=== PATIENT | female | born 1955 | race Caucasian/White ===

== ENCOUNTER → 2016-07-17 | Outpatient (CLI) | payer BC ==
[2016-07-17 07:54] LABS: ALT 40 U/L (9-52); AST 35 U/L (14-36); Alkaline Phosphatase 89 U/L (38-126); Anion Gap 8 mmol/L; Basophils # (A) 0.1 k/uL (0-0.2); Basophils % (A) 1 %; Blood Urea Nitrogen 15 mg/dL (7-17); Calcium 9.8 mg/dL (8.4-10.2); Carbon Dioxide 29 mmol/L (22-30); Chloride 107 mmol/L (98-107); Eosinophils # (A) 0.4 k/uL (0-0.7); Eosinophils % (A) 6 %; Glucose 85 mg/dL (74-99); HCT 42.6 % (34.0-46.0); HDW 2.64; HGB 14.2 gm/dL (11.4-16.0); Luc # (Auto) 0.21; Luc % (Auto) 3; Lymphocytes # (A) 1.7 k/uL (1.0-4.8); Lymphocytes % (A) 26 %; MCH 28.6 pg (25.0-35.0); MCHC 33.3 g/dL (31.0-37.0); MCV 85.7 fL (80.0-100.0); Mean Platelet Volume 6.8; Monocytes # (A) 0.4 k/uL (0-1.0); Monocytes % (A) 6 %; Neutrophils # (A) 3.6 k/uL (1.3-7.7); Neutrophils % (A) 57 %; Non-African American GFR(MDRD) >60 (>60 ml/min/1.73 sqM); Potassium 4.4 mmol/L (3.5-5.1); RBC 4.97 m/uL (3.80-5.40); RDW 12.7 % (11.5-15.5); Sodium 144 mmol/L (137-145); Total Bilirubin 0.9 mg/dL (0.2-1.3); Total Protein 7.4 g/dL (6.3-8.2); WBC 6.4 k/uL (3.8-10.6); WBC (Perox) 6.95
--- NOTE | 2016-07-17 07:59 | US ---
EXAMINATION TYPE: US abdomen complete DATE OF EXAM: 07/17/2016 COMPARISON: Previous study dated 01/08/2016. CLINICAL HISTORY: B19.10 HEP B WITHOUT COMA. EXAM MEASUREMENTS: Liver Length: 12.5 cm Gallbladder Wall: 0.3 cm CBD: 0.3 cm Spleen: 10.9 cm Right Kidney: 9.8 x 4.6 x 4.4 cm Left Kidney: 10.2 x 5.9 x 4.8 cm Pancreas: portions of head and tail in entirety obscured by bowel gas Liver: wnl Gallbladder: wnl Evidence for sonographic Sotelo's sign: CBD: wnl Spleen: wnl Right Kidney: Inferior pole obscured by overlying bowel gas Left Kidney: No hydronephrosis or masses seen Upper IVC: wnl Abd Aorta: Partially obscured by overlying bowel gas, portions visualized wnl Limited views of the pancreas are unremarkable. The liver is normal in size without evidence of biliary dilatation. The gallbladder is normal without evidence of cholelithiasis. Gallbladder wall measures 3 mm. Distal common hepatic duct measures 3 mm. The spleen is normal in size. Both kidneys appear normal. Visualized portions of aorta and IVC are normal. IMPRESSION: NORMAL ABDOMINAL ULTRASOUND.
[2016-07-20 14:22] LABS: Hepatitis B Virus DNA DETECTED (Not detected)
== END | disposition home or self-care (01) ==
LOC: RADUSWWP 06:37
PROVIDERS: ATTEND Internal Medicine Gastroenterology
DX: B19.10 Unspecified viral hepatitis B without hepatic coma (principal)
CPT/HCPCS: 76700; 80053; 82105; 82677; 84702; 85025; 86336; 87340; 87517

== ENCOUNTER → 2016-10-02 | Outpatient (CLI) | payer BC ==
--- NOTE | 2016-10-05 09:56 | MM ---
Reason for exam: screening (asymptomatic). Last mammogram was performed 1 year and 1 month ago. History: Patient is postmenopausal and is nulliparous. Family history of breast cancer in maternal aunt at age 70. Reductions of both breasts, 1986. Took hormonal contraceptives for 5 years beginning at age 23. Took estrogen for 2 years beginning at age 49. Physical Findings: A clinical breast exam by your physician is recommended on an annual basis and results should be correlated with mammographic findings. MG 3D Screening Mammo W/Cad Bilateral CC and MLO view(s) were taken. Prior study comparison: September 06, 2015, bilateral MG screening mammo w CAD. May 04, 2014, bilateral MG screening mammo w CAD. Finding: There are typically benign calcifications in both breasts. No significant changes in finding since September 06, 2015 and May 04, 2014. ASSESSMENT: Benign, BI-RAD 2 RECOMMENDATION: Routine screening mammogram of both breasts in 1 year.
== END | disposition home or self-care (01) ==
LOC: RADMAMWWP 06:57
PROVIDERS: ATTEND Internal Medicine
DX: Z12.31 Encounter for screening mammogram for malignant neoplasm of breast (principal)
CPT/HCPCS: 77063; G0202

== ENCOUNTER → 2017-01-04 | Outpatient (CLI) | payer BC ==
[2017-01-04 08:23] LABS: Basophils # (A) 0.1 k/uL (0-0.2); Basophils % (A) 1 %; CHCM 32.2; Eosinophils # (A) 0.2 k/uL (0-0.7); Eosinophils % (A) 3 %; HCT 46.5 % (34.0-46.0); HDW 2.43; HGB 14.9 gm/dL (11.4-16.0); Luc # (Auto) 0.11; Luc % (Auto) 2; Lymphocytes # (A) 1.4 k/uL (1.0-4.8); Lymphocytes % (A) 23 %; MCHC 32.1 g/dL (31.0-37.0); MCV 87.4 fL (80.0-100.0); Monocytes # (A) 0.4 k/uL (0-1.0); Monocytes % (A) 7 %; Neutrophils # (A) 3.9 k/uL (1.3-7.7); Neutrophils % (A) 64 %; RBC 5.32 m/uL (3.80-5.40); RDW 14.1 % (11.5-15.5); WBC 6.1 k/uL (3.8-10.6); WBC (Perox) 6.13
[2017-01-04 08:39] LABS: ALT 34 U/L (9-52); AST 26 U/L (14-36); Alkaline Phosphatase 87 U/L (38-126); Anion Gap 9 mmol/L; Blood Urea Nitrogen 12 mg/dL (7-17); Calcium 10.1 mg/dL (8.4-10.2); Carbon Dioxide 30 mmol/L (22-30); Chloride 104 mmol/L (98-107); Cholesterol 172 mg/dL (<200); Creatine Kinase 49 U/L (30-135); Glucose 96 mg/dL (74-99); HDL Cholesterol 53 mg/dL (40-60); Non-African American GFR(MDRD) >60 (>60 ml/min/1.73 sqM); Potassium 4.4 mmol/L (3.5-5.1); Sodium 143 mmol/L (137-145); Total Bilirubin 0.7 mg/dL (0.2-1.3); Total Protein 7.5 g/dL (6.3-8.2)
--- NOTE | 2017-01-04 14:10 | US ---
EXAMINATION TYPE: US abdomen complete DATE OF EXAM: 01/04/2017 COMPARISON: July 17, 2016 CLINICAL HISTORY: B18.1 Chronic viral hepatitis B without delta-agent. Chronic viral Hep B EXAM MEASUREMENTS: Liver Length: 12.5 cm Gallbladder Wall: 0.2 cm CBD: 0.3 cm Spleen: 10.0 cm Right Kidney: 10.1 x 4.8 x 4.7 cm Left Kidney: 11.4 x 5.0 x 4.4 cm Pancreas: visualized portions wnl, head and tail obscured by overlying midline bowel gas Liver: somewhat heterogeneous, otherwise wnl Gallbladder: wnl Evidence for sonographic Sotelo's sign: no CBD: visualized portions wnl, limited by overlying bowel gas Spleen: wnl Right Kidney: wnl Left Kidney: wnl Upper IVC: wnl Abd Aorta: wnl The liver is somewhat heterogenous. The intrahepatic portion of the IVC and proximal abdominal aorta are within normal limits. There is no evidence of cholelithiasis. Common bile duct is unremarkable. The visualized portions of the pancreas are homogenous. The spleen is unremarkable. Kidneys are s ymmetric and free of hydronephrosis. No renal lesions are seen. IMPRESSION: 1. Hepatic heterogeneity may reflect chronic hepatocellular disease versus hepatic steatosis.
[2017-01-06 17:06] LABS: Hepatitis B Virus DNA DETECTED (Not detected); Hepatitis B Virus DNA, Quant 858 IU/mL (<10); Log HBV IU/mL 2.93 (<1.00)
== END | disposition home or self-care (01) ==
LOC: RADUSWWP 06:48
PROVIDERS: ATTEND Internal Medicine Gastroenterology
DX: B19.10 Unspecified viral hepatitis B without hepatic coma (principal)
CPT/HCPCS: 36415; 76700; 80053; 80061; 82105; 82550; 85025; 87517

== ENCOUNTER → 2017-08-03 | Outpatient (CLI) | payer BC ==
[2017-08-03 07:51] LABS: Basophils % (A) 1 %; Eosinophils # (A) 0.3 k/uL (0-0.7); Eosinophils % (A) 4 %; HCT 43.4 % (34.0-46.0); HGB 14.3 gm/dL (11.4-16.0); Lymphocytes # (A) 1.8 k/uL (1.0-4.8); Lymphocytes % (A) 29 %; MCH 27.9 pg (25.0-35.0); MCV 84.6 fL (80.0-100.0); Mean Platelet Volume 6.7; Monocytes # (A) 0.4 k/uL (0-1.0); Monocytes % (A) 6 %; Neutrophils # (A) 3.7 k/uL (1.3-7.7); Neutrophils % (A) 58 %; Platelet Count 281 k/uL (150-450); RBC 5.13 m/uL (3.80-5.40); RDW 12.9 % (11.5-15.5); WBC 6.3 k/uL (3.8-10.6)
[2017-08-03 07:59] LABS: ALT 32 U/L (9-52); AST 26 U/L (14-36); Albumin 4.2 g/dL (3.5-5.0); Alkaline Phosphatase 82 U/L (38-126); Anion Gap 10 mmol/L; Blood Urea Nitrogen 13 mg/dL (7-17); Calcium 9.5 mg/dL (8.4-10.2); Carbon Dioxide 26 mmol/L (22-30); Chloride 107 mmol/L (98-107); Glucose 96 mg/dL (74-99); Potassium 4.5 mmol/L (3.5-5.1); Sodium 143 mmol/L (137-145); Total Bilirubin 0.6 mg/dL (0.2-1.3); Total Protein 6.7 g/dL (6.3-8.2)
--- NOTE | 2017-08-03 08:26 | US ---
EXAMINATION TYPE: US abdomen complete DATE OF EXAM: 08/03/2017 COMPARISON: Complete abdominal ultrasound January 04, 2017 CLINICAL HISTORY: B18.1 Chronic viral hepatitis B without delta-agen. EXAM MEASUREMENTS: Liver Length: 12.7 cm Gallbladder Wall: 0.1 cm CBD: 0.2 cm Spleen: 9.9 cm Right Kidney: 10.1 x 4.2 x 3.7 cm Left Kidney: 10.2 x 4.5 x 4.6 cm Pancreas: Tail obscured by overlying bowel gas Liver: slightly heterogenous Gallbladder: wnl Evidence for sonographic Sotelo's sign: No CBD: wnl Spleen: wnl Right Kidney: wnl Left Kidney: wnl Upper IVC: wnl Abd Aorta: wnl The visualized liver remains slightly heterogeneous. No obvious intrahepatic mass or hepatic ductal dilatation is seen. The intrahepatic portion of the IVC and proximal abdominal aorta are within miguel l limits. There is no evidence of cholelithiasis. Common bile duct is unremarkable. The visualized portions of the pancreas are homogenous. The spleen is unremarkable. Kidneys are symmetric and tiana e of hydronephrosis. No renal lesions are seen. IMPRESSION: Overall stable findings slightly heterogeneous liver without suspicious mass or ductal di latation seen. No new ascites is noted.
[2017-08-04 14:47] LABS: Hepatitis B Virus DNA DETECTED (Not detected); Log HBV IU/mL 3.11 (<1.00)
== END | disposition home or self-care (01) ==
LOC: RADUSWWP 06:47
PROVIDERS: ATTEND Internal Medicine Gastroenterology
DX: B18.1 Chronic viral hepatitis B without delta-agent (principal)
CPT/HCPCS: 36415; 76700; 80053; 82105; 85025; 87517

== ENCOUNTER → 2017-09-27 | Outpatient (CLI) | payer BC ==
[2017-09-27 07:50] LABS: ALT 28 U/L (9-52); AST 28 U/L (14-36); Albumin 4.2 g/dL (3.5-5.0); Alkaline Phosphatase 81 U/L (38-126); Anion Gap 8 mmol/L; Blood Urea Nitrogen 14 mg/dL (7-17); Calcium 9.5 mg/dL (8.4-10.2); Carbon Dioxide 28 mmol/L (22-30); Chloride 107 mmol/L (98-107); Cholesterol 152 mg/dL (<200); Glucose 91 mg/dL (74-99); HDL Cholesterol 51 mg/dL (40-60); LDL Cholesterol,Calculated 83 mg/dL (0-99); Potassium 4.9 mmol/L (3.5-5.1); Sodium 143 mmol/L (137-145); Total Bilirubin 0.7 mg/dL (0.2-1.3); Total Protein 6.9 g/dL (6.3-8.2); Triglycerides 90 mg/dL (<150)
== END | disposition home or self-care (01) ==
LOC: LABWHC1 06:32
PROVIDERS: ATTEND Internal Medicine Interventional Cardiology
DX: E78.2 Mixed hyperlipidemia (principal)
CPT/HCPCS: 36415; 80053; 80061

== ENCOUNTER → 2017-10-19 | Outpatient (CLI) | payer BC ==
--- NOTE | 2017-10-20 08:08 | MM ---
Reason for exam: screening (asymptomatic). Last mammogram was performed 1 year and 1 month ago. History: Patient is postmenopausal and is nulliparous. Family history of breast cancer in maternal aunt at age 70. Reductions of both breasts, 1986. Took hormonal contraceptives for 5 years beginning at age 23. Took estrogen for 2 years beginning at age 49. Physical Findings: A clinical breast exam by your physician is recommended on an annual basis and results should be correlated with mammographic findings. MG 3D Screening Mammo W/Cad Bilateral CC and MLO view(s) were taken. Prior study comparison: October 02, 2016, bilateral MG 3d screening mammo w/cad. September 06, 2015, bilateral MG screening mammo w CAD. The breast tissue is almost entirely fat. No significant changes when compared with prior studies. ASSESSMENT: Benign, BI-RAD 2 RECOMMENDATION: Routine screening mammogram of both breasts in 1 year.
== END | disposition home or self-care (01) ==
LOC: RADMAMWWP 07:10
PROVIDERS: ATTEND Internal Medicine
DX: Z12.31 Encounter for screening mammogram for malignant neoplasm of breast (principal)
CPT/HCPCS: 77063; 77067

== ENCOUNTER → 2018-01-05 | Outpatient (CLI) | payer BC ==
[2018-01-05 07:39] LABS: Basophils # (A) 0.1 k/uL (0-0.2); Basophils % (A) 1 %; Eosinophils # (A) 0.3 k/uL (0-0.7); Eosinophils % (A) 4 %; HCT 44.4 % (34.0-46.0); HGB 14.7 gm/dL (11.4-16.0); Lymphocytes # (A) 1.8 k/uL (1.0-4.8); Lymphocytes % (A) 29 %; MCH 28.9 pg (25.0-35.0); MCHC 33.1 g/dL (31.0-37.0); MCV 87.1 fL (80.0-100.0); Mean Platelet Volume 6.6; Monocytes # (A) 0.4 k/uL (0-1.0); Monocytes % (A) 6 %; Neutrophils # (A) 3.7 k/uL (1.3-7.7); Neutrophils % (A) 59 %; Platelet Count 288 k/uL (150-450); RBC 5.09 m/uL (3.80-5.40); WBC 6.4 k/uL (3.8-10.6)
[2018-01-05 07:58] LABS: ALT 26 U/L (9-52); AST 24 U/L (14-36); Albumin 3.9 g/dL (3.5-5.0); Alkaline Phosphatase 81 U/L (38-126); Anion Gap 7 mmol/L; Blood Urea Nitrogen 11 mg/dL (7-17); Calcium 9.6 mg/dL (8.4-10.2); Carbon Dioxide 28 mmol/L (22-30); Chloride 107 mmol/L (98-107); Glucose 98 mg/dL (74-99); Potassium 4.6 mmol/L (3.5-5.1); Sodium 142 mmol/L (137-145); Total Bilirubin 0.6 mg/dL (0.2-1.3); Total Protein 6.8 g/dL (6.3-8.2)
--- NOTE | 2018-01-05 12:54 | US ---
EXAMINATION TYPE: US abdomen complete DATE OF EXAM: 01/05/2018 COMPARISON: 08/03/2017 CLINICAL HISTORY: 62-year-old female B18.1 Chronic viral hepatitis B without delta-agent. Rule out HC C TECHNIQUE: Multiple sonographic images of the abdomen are obtained. FINDINGS: EXAM MEASUREMENTS: Liver Length: 12.2 cm Gallbladder Wall: 0.2 cm CBD: 0.2 cm Spleen: 9.0 cm Right Kidney: 10.7 x 5.5 x 4.7 cm Left Kidney: 10.6 x 4.6 x 4.8 cm Pancreas: tail obscured by overlying bowel gas Liver: mildly heterogeneous . No focal lesions seen are identified. The liver rescanned in both sup ine and LLD position. Gallbladder: wnl Evidence for sonographic Sotelo's sign: no CBD: wnl Spleen: wnl Right Kidney: No hydronephrosis. Left Kidney: No hydronephrosis. Upper IVC: wnl Abd Aorta: wnl IMPRESSION: 1. Mildly heterogeneous appearance to the liver in keeping with patient's history of chronic hepatiti s. 2. No sonographic evidence for hepatoma.
[2018-01-07 14:19] LABS: Hepatitis B Virus DNA DETECTED (Not detected); Hepatitis B Virus DNA, Quant 707 IU/mL (<10); Log HBV IU/mL 2.85 (<1.00)
== END ==
LOC: RADUSWWP 06:33
PROVIDERS: ATTEND Internal Medicine Gastroenterology
DX: B18.1 Chronic viral hepatitis B without delta-agent (principal)
CPT/HCPCS: 36415; 76700; 80053; 82105; 85025; 87517

== ENCOUNTER → 2018-04-12 | Outpatient (CLI) | payer BC | END | disposition home or self-care (01) | LOC: LABWHC1 06:52 | PROVIDERS: ATTEND Internal Medicine Interventional Cardiology | DX: E78.2 Mixed hyperlipidemia (principal) | CPT/HCPCS: 36415; 80061; 84450; 84460 ==

== ENCOUNTER → 2018-07-06 | Outpatient (CLI) | payer BC ==
[2018-07-06 11:13] LABS: Albumin 4.4 g/dL (3.80-4.90); Albumin/Globulin Ratio 2.32 (1.60-3.17); Bilirubin, Conjugated 0.2 mg/dL (0.20-0.40); Bilirubin,Unconjugated 0.3 mg/dL; Globulin 1.9 g/dL (1.6-3.3); Total Bilirubin 0.5 mg/dL (0.2-1.2); Total Protein 6.3 g/dL (6.2-8.2)
[2018-07-07 13:06] LABS: Hepatitis B Virus DNA DETECTED (Not detected); Hepatitis B Virus DNA, Quant 706 IU/mL (<10); Log HBV IU/mL 2.85 (<1.00)
== END | disposition home or self-care (01) ==
LOC: LABWHC1 06:41
PROVIDERS: ATTEND Internal Medicine Gastroenterology
DX: B18.1 Chronic viral hepatitis B without delta-agent (principal)
CPT/HCPCS: 36415; 80076; 82105; 87517

== ENCOUNTER → 2018-07-06 | Outpatient (CLI) | payer BC ==
--- NOTE | 2018-07-06 07:34 | US ---
EXAMINATION TYPE: US abdomen complete DATE OF EXAM: 07/06/2018 COMPARISON: US 01/05/2018 CLINICAL HISTORY: B18.1 Hepatitis B. EXAM MEASUREMENTS: Liver Length: 13.1 cm Gallbladder Wall: 0.2 cm CBD: 0.3 cm Spleen: 10.1 cm Right Kidney: 10.6 x 4.8 x 4.8 cm Left Kidney: 9.8 x 5.2 x 4.5 cm Pancreas: Obscured by bowel gas, visualized portions wnl Liver: Heterogeneous Gallbladder: wnl Evidence for sonographic Sotelo's sign: No CBD: wnl Spleen: wnl Right Kidney: No hydronephrosis or masses seen Left Kidney: No hydronephrosis or masses seen Upper IVC: wnl Abd Aorta: wnl The liver is heterogeneous The intrahepatic portion of the IVC and proximal abdominal aorta are with in normal limits. There is no evidence of cholelithiasis. Common bile duct is unremarkable. The vi sualized portions of the pancreas are homogenous. The spleen is unremarkable. Kidneys are symmetric and free of hydronephrosis. No renal lesions are seen. IMPRESSION: Coarse liver echotexture could be due to hepatocellular disease, hepatic steatosis.
--- NOTE | 2018-07-06 08:33 | BD ---
EXAMINATION TYPE: Axial Bone Density DATE OF EXAM: 07/06/2018 COMPARISON: 2016 CLINICAL HISTORY: post menopausal Height: 5' 2 1/2 Weight: 165 FRAX RISK QUESTIONS: History of Fracture in Adulthood: y Secondary Osteoporosis: 5. Chronic liver disease: y RISK FACTORS HISTORY OF: Postmenopausal woman: y MEDICATIONS: Additional Medications: blood thinner , cholesterol Additional History: EXAM MEASUREMENTS: Bone mineral densitometry was performed using the [employer] System. Bone mineral density as measured about the Lumbar spine is: ----- L1-L4(G/cm2): 1.185 T Score Values are as follows: ----- L2: -0.6 ----- L3:-1.0 ----- L4: 0.9 ----- L1-L4: 0.0 Bone mineral density has: Decreased -4.3% since study of: 09/06/2015 Bone mineral density about the R hip (g/cm2): 0.768 Bone mineral density about the L hip (g/cm2): 0.766 T Score values are as follows: -----R Neck: -1.9 -----L Neck: -2.0 -----R Total: -0.8 -----L Total: -1.1 Bone mineral density has: Decreased -3.8% since study of: 09/06/2015 IMPRESSION: Osteopenia (T Score between -2.5 and -1). There is slightly increased risk of fracture and the patient may be considered for treatment. Re-Screen 2-5 years. NOTE: T-SCORE=SD OF THE YOUNG ADULT MEAN.
== END ==
LOC: RADUSWWP 06:44
PROVIDERS: ATTEND Internal Medicine
DX: M85.80 Other specified disorders of bone density and structure, unspecified site (principal); B18.1 Chronic viral hepatitis B without delta-agent
CPT/HCPCS: 76700; 77080

== ENCOUNTER → 2018-10-27 | Outpatient (CLI) | payer BC ==
[2018-10-27 11:36] LABS: African American GFR (CKD) 92.2 (60.0-200.0); Albumin 4.4 g/dL (3.80-4.90); Albumin/Globulin Ratio 2.32 (1.60-3.17); Anion Gap 4.9 mmol/L (4.00-12.00); BUN/Creat Ratio 17.5 Ratio (12.00-20.00); Calcium 9.3 mg/dL (8.7-10.3); Carbon Dioxide 29.1 mmol/L (21.6-31.8); Chol/HDL Ratio 2.75; Globulin 1.9 g/dL (1.6-3.3); LDL Cholesterol,Calculated 65.4 mg/dL (0.0-131.0); Potassium 4.2 mmol/L (3.5-5.5); Total Bilirubin 0.6 mg/dL (0.3-1.2); Total Protein 6.3 g/dL (6.2-8.2); VLDL Calculation 23.6 mg/dL (5.00-40.00)
== END | disposition home or self-care (01) ==
LOC: LABWHC1 06:39
PROVIDERS: ATTEND Internal Medicine Interventional Cardiology
DX: E78.2 Mixed hyperlipidemia (principal)
CPT/HCPCS: 36415; 80053; 80061

== ENCOUNTER → 2018-10-27 | Outpatient (CLI) | payer BC ==
--- NOTE | 2018-10-27 13:24 | MM ---
Reason for exam: screening (asymptomatic). Last mammogram was performed 1 year ago. History: Patient is postmenopausal and is nulliparous. Family history of breast cancer in maternal aunt at age 70. Reductions of both breasts, 1987. Took hormonal contraceptives for 5 years beginning at age 23. Took estrogen for 2 years beginning at age 49. Physical Findings: A clinical breast exam by your physician is recommended on an annual basis and results should be correlated with mammographic findings. MG 3D Screening Mammo W/Cad Bilateral CC and MLO view(s) were taken. Prior study comparison: October 19, 2017, bilateral MG 3d screening mammo w/cad. October 02, 2016, bilateral MG 3d screening mammo w/cad. There are scattered fibroglandular densities. There are benign appearing round calcifications bilaterally. There is no discrete abnormality. ASSESSMENT: Benign, BI-RAD 2 RECOMMENDATION: Routine screening mammogram of both breasts in 1 year.
== END | disposition home or self-care (01) ==
LOC: RADMAMWWP 06:42
PROVIDERS: ATTEND Internal Medicine
DX: Z12.31 Encounter for screening mammogram for malignant neoplasm of breast (principal)
CPT/HCPCS: 77063; 77067

== ENCOUNTER → 2019-01-04 | Outpatient (CLI) | payer BC ==
--- NOTE | 2019-01-04 07:37 | US ---
EXAMINATION TYPE: US abdomen complete DATE OF EXAM: 01/04/2019 COMPARISON: US 07/06/2018 CLINICAL HISTORY: B18.1 CHRONIC HEPATITIS B. Chronic Hep B EXAM MEASUREMENTS: Liver Length: 12.6 cm Gallbladder Wall: 0.3 cm CBD: 0.3 cm Spleen: 10.9 cm Right Kidney: 10.2 x 4.5 x 4.9 cm Left Kidney: 10.3 x 5.3 x 5.2 cm Pancreas: wnl, tail obscured by overlying bowel gas Liver: Slightly heterogeneous, similar appearance when compared to previous. No focal mass is seen a lthough coarsened hepatic echotexture does limit evaluation for hepatic masses. Gallbladder: wnl Evidence for sonographic Sotelo's sign: No CBD: wnl Spleen: wnl Right Kidney: wnl Left Kidney: wnl Upper IVC: wnl Abd Aorta: wnl The liver is heterogenous. The intrahepatic portion of the IVC and proximal abdominal aorta are with in normal limits. There is no evidence of cholelithiasis. Common bile duct is unremarkable. The vi sualized portions of the pancreas are homogenous. The spleen is unremarkable. Kidneys are symmetric and free of hydronephrosis. No renal lesions are seen. IMPRESSION: Similar coarsened appearance of the hepatic echotexture as seen on 07/06/2018 in keeping w ith this patient's known history of hepatocellular disease. No new focal lesion is seen.
[2019-01-04 07:49] LABS: Albumin 4.2 g/dL (3.5-5.0); Bilirubin, Delta 0.1 mg/dL (0.0-0.2); Bilirubin,Unconjugated 0.6 mg/dL (0.0-1.1); Total Bilirubin 0.7 mg/dL (0.2-1.3); Total Protein 7.2 g/dL (6.3-8.2)
[2019-01-04 07:52] LABS: Basophils # (A) 0.1 k/uL (0-0.2); Basophils % (A) 1 %; Eosinophils # (A) 0.2 k/uL (0-0.7); Eosinophils % (A) 3 %; HCT 43.2 % (34.0-46.0); HGB 14.6 gm/dL (11.4-16.0); Lymphocytes # (A) 1.6 k/uL (1.0-4.8); Lymphocytes % (A) 24 %; MCH 29.4 pg (25.0-35.0); MCHC 33.8 g/dL (31.0-37.0); Mean Platelet Volume 5.5; Monocytes # (A) 0.4 k/uL (0-1.0); Monocytes % (A) 5 %; Neutrophils # (A) 4.3 k/uL (1.3-7.7); Neutrophils % (A) 65 %; Platelet Count 284 k/uL (150-450); RBC 4.97 m/uL (3.80-5.40); RDW 12.5 % (11.5-15.5); WBC 6.7 k/uL (3.8-10.6)
== END | disposition home or self-care (01) ==
LOC: RADUSWWP 06:45
PROVIDERS: ATTEND Internal Medicine Gastroenterology
DX: K76.89 Other specified diseases of liver (principal); B18.1 Chronic viral hepatitis B without delta-agent
CPT/HCPCS: 76700; 80076; 82105; 85025; 87517

== ENCOUNTER → 2019-10-25 | Outpatient (CLI) | payer BC ==
--- NOTE | 2019-10-25 08:24 | US ---
EXAMINATION TYPE: US abdomen complete DATE OF EXAM: 10/25/2019 COMPARISON: 01/04/2019 CLINICAL HISTORY: 64-year-old female B19.10 Unspecified viral hepatitis B w/o hepatic. Routine ultras ound TECHNIQUE: Multiple sonographic images of the abdomen are obtained. FINDINGS: EXAM MEASUREMENTS: Liver Length: 13.3 cm Gallbladder Wall: 0.2 cm CBD: 0.5 cm Spleen: 9.5 cm Right Kidney: 10.7 x 4.5 x 4.6 cm Left Kidney: 9.2 x 4.9 x 5.2 cm Pancreas: Visualized neck and body shows no gross abnormality. Suboptimal visualization of the pancre atic head and tail due to shadowing from bowel gas. Liver: No focal lesions visualized. Some visualized portions seem to show a relatively smooth echo texture. Gallbladder: wnl Evidence for sonographic Sotelo's sign: neg CBD: wnl Spleen: wnl Kidneys: No hydronephrosis on either side. Upper IVC: wnl Abd Aorta: wnl IMPRESSION: No focal liver lesion seen. Liver normal size at 13.3 cm. No gallstones or biliary ductal dilatation.
[2019-10-25 08:25] LABS: Basophils # (A) 0.1 k/uL (0-0.2); Basophils % (A) 1 %; Eosinophils # (A) 0.2 k/uL (0-0.7); Eosinophils % (A) 3 %; HCT 44.6 % (34.0-46.0); HGB 14.1 gm/dL (11.4-16.0); Lymphocytes # (A) 1.7 k/uL (1.0-4.8); Lymphocytes % (A) 26 %; MCH 27.7 pg (25.0-35.0); MCHC 31.7 g/dL (31.0-37.0); MCV 87.2 fL (80.0-100.0); Mean Platelet Volume 6.9; Monocytes # (A) 0.4 k/uL (0-1.0); Monocytes % (A) 6 %; Neutrophils # (A) 4.1 k/uL (1.3-7.7); Neutrophils % (A) 61 %; Platelet Count 286 k/uL (150-450); RBC 5.11 m/uL (3.80-5.40); RDW 12.9 % (11.5-15.5); WBC 6.6 k/uL (3.8-10.6)
[2019-10-25 08:39] LABS: ALT 20 U/L (4-34); AST 28 U/L (14-36); African American GFR (CKD) >90 (>60 ml/min/1.73 sqM); Albumin 4.3 g/dL (3.5-5.0); Alkaline Phosphatase 88 U/L (38-126); Anion Gap 7 mmol/L; Blood Urea Nitrogen 11 mg/dL (7-17); Calcium 9.6 mg/dL (8.4-10.2); Carbon Dioxide 31 mmol/L (22-30); Chloride 104 mmol/L (98-107); Cholesterol 157 mg/dL (<200); Glucose 100 mg/dL (74-99); HDL Cholesterol 43 mg/dL (40-60); LDL Cholesterol,Calculated 82 mg/dL (0-99); Non-African American GFR(CKD) >90 (>60 ml/min/1.73 sqM); Potassium 4.4 mmol/L (3.5-5.1); Sodium 142 mmol/L (137-145); Total Bilirubin 0.8 mg/dL (0.2-1.3); Total Protein 7.2 g/dL (6.3-8.2); Triglycerides 161 mg/dL (<150)
== END | disposition home or self-care (01) ==
LOC: RADUSWWP 07:01
PROVIDERS: ATTEND Internal Medicine Gastroenterology
DX: B19.10 Unspecified viral hepatitis B without hepatic coma (principal); E78.2 Mixed hyperlipidemia
CPT/HCPCS: 76700; 80053; 80061; 82105; 85025; 87517

== ENCOUNTER → 2020-01-08 | Outpatient (CLI) | payer BC ==
--- NOTE | 2020-01-09 09:42 | MM ---
Reason for exam: screening (asymptomatic). Last mammogram was performed 1 year and 2 months ago. History: Patient is postmenopausal and is nulliparous. Family history of breast cancer in maternal aunt at age 70. Reductions of both breasts, 1987. Took hormonal contraceptives for 5 years beginning at age 23. Took estrogen for 2 years beginning at age 49. Physical Findings: A clinical breast exam by your physician is recommended on an annual basis and results should be correlated with mammographic findings. MG 3D Screening Mammo W/Cad Bilateral CC and MLO view(s) were taken. Prior study comparison: October 27, 2018, bilateral MG 3d screening mammo w/cad. October 19, 2017, bilateral MG 3d screening mammo w/cad. There are scattered fibroglandular densities. There is no discrete abnormality. No significant changes when compared with prior studies. ASSESSMENT: Negative, BI-RAD 1 RECOMMENDATION: Routine screening mammogram of both breasts in 1 year.
== END | disposition home or self-care (01) ==
LOC: RADMAMWWP 10:44
PROVIDERS: ATTEND Internal Medicine
DX: Z12.31 Encounter for screening mammogram for malignant neoplasm of breast (principal)
CPT/HCPCS: 77063; 77067

== ENCOUNTER → 2020-06-19 | Outpatient (CLI) | payer BC ==
[2020-06-19 08:09] LABS: Basophils # (A) 0.1 k/uL (0-0.2); Basophils % (A) 1 %; Eosinophils # (A) 0.3 k/uL (0-0.7); Eosinophils % (A) 3 %; HGB 14.3 gm/dL (11.4-16.0); Lymphocytes # (A) 2.1 k/uL (1.0-4.8); Lymphocytes % (A) 27 %; MCH 28.1 pg (25.0-35.0); MCHC 32.4 g/dL (31.0-37.0); MCV 86.8 fL (80.0-100.0); Mean Platelet Volume 6.6; Monocytes # (A) 0.5 k/uL (0-1.0); Monocytes % (A) 6 %; Neutrophils # (A) 4.8 k/uL (1.3-7.7); Neutrophils % (A) 61 %; Platelet Count 288 k/uL (150-450); RBC 5.07 m/uL (3.80-5.40); RDW 13.1 % (11.5-15.5); WBC 7.9 k/uL (3.8-10.6)
--- NOTE | 2020-06-19 08:26 | US ---
EXAMINATION TYPE: US abdomen complete DATE OF EXAM: 06/19/2020 COMPARISON: US 10/25/19, 01/04/19, ++ CLINICAL HISTORY: B19.10 Unspecified viral hepatitis B without hepat. EXAM MEASUREMENTS: Liver Length: 14.4 cm Gallbladder Wall: 0.1 cm CBD: 0.4 cm Spleen: 10.0 cm Right Kidney: 10.7 x 5.1 x 4.5 cm Left Kidney: 11.4 x 5.2 x 5.1 cm Pancreas: echogenic, Tail obscured by overlying bowel gas Liver: Increased attenuation, course texture Gallbladder: No stones seen Evidence for sonographic Sotelo's sign: No CBD: wnl Spleen: wnl Right Kidney: No hydronephrosis or masses seen Left Kidney: No hydronephrosis or masses seen Upper IVC: wnl Abd Aorta: wnl The liver is heterogenous. The intrahepatic portion of the IVC and proximal abdominal aorta are withi n normal limits. There is no evidence of cholelithiasis. Common bile duct is unremarkable. The vis ualized portions of the pancreas are homogenous. The spleen is unremarkable. Kidneys are symmetric and free of hydronephrosis. No renal lesions are seen. IMPRESSION: 1. Hepatic steatosis.
[2020-06-20 00:29] LABS: Alpha Fetoprotein, Tumor Mkr 3.3 ng/mL (0.0-7.9)
[2020-06-21 14:17] LABS: Hepatitis B Virus DNA DETECTED (Not detected); Hepatitis B Virus DNA, Quant 513 IU/mL (<10); Log HBV IU/mL 2.71 (<1.00)
== END | disposition home or self-care (01) ==
LOC: RADUSWWP 07:10
PROVIDERS: ATTEND Internal Medicine Gastroenterology
DX: B19.10 Unspecified viral hepatitis B without hepatic coma (principal); K76.0 Fatty (change of) liver, not elsewhere classified
CPT/HCPCS: 76700; 82105; 85025; 87340; 87517

== ENCOUNTER → 2020-07-24 | Outpatient (CLI) | payer BC ==
[2020-07-24 14:24] LABS: African American GFR (CKD) 106.9 (60.0-200.0); Albumin 4.6 g/dL (3.80-4.90); Albumin/Globulin Ratio 1.92 (1.60-3.17); BUN/Creat Ratio 22.86 Ratio (12.00-20.00); Calcium 9.5 mg/dL (8.7-10.3); Globulin 2.4 g/dL (1.6-3.3); Non-African American GFR(CKD) 92.2 (60.0-200.0); Potassium 4.5 mmol/L (3.5-5.5); Total Bilirubin 0.5 mg/dL (0.3-1.2)
== END | disposition home or self-care (01) ==
LOC: LABWHC1 07:31
PROVIDERS: ATTEND Internal Medicine Gastroenterology
DX: B19.10 Unspecified viral hepatitis B without hepatic coma (principal)
CPT/HCPCS: 36415; 80053

== ENCOUNTER → 2020-11-18 | Outpatient (CLI) | payer BC ==
[2020-11-18 14:06] LABS: African American GFR (CKD) 124.5 (60.0-200.0); Albumin 4.4 g/dL (3.8-4.9); Albumin/Globulin Ratio 1.92 (1.60-3.17); Anion Gap 11.8 mmol/L (4.00-12.00); BUN/Creat Ratio 18.73 Ratio (12.00-20.00); Blood Urea Nitrogen 8.2 mg/dL (9.0-27.0); Calcium 9.8 mg/dL (8.7-10.3); Carbon Dioxide 25.3 mmol/L (21.6-31.8); Chol/HDL Ratio 3.22 Ratio; Globulin 2.3 g/dL (1.6-3.3); HDL Cholesterol 47.9 mg/dL (40.00-60.00); LDL Cholesterol,Calculated 80.1 mg/dL (0.0-131.0); Non-African American GFR(CKD) 107.4 (60.0-200.0); Potassium 4.7 mmol/L (3.5-5.5); Total Bilirubin 0.4 mg/dL (0.30-1.20); Total Protein 6.7 g/dL (6.2-8.2)
== END | disposition home or self-care (01) ==
LOC: LABWHC1 07:13
PROVIDERS: ATTEND Internal Medicine Interventional Cardiology
DX: E78.2 Mixed hyperlipidemia (principal)
CPT/HCPCS: 36415; 80053; 80061

== ENCOUNTER → 2020-12-23 | Outpatient (CLI) | payer BC ==
--- NOTE | 2020-12-23 07:50 | US ---
EXAMINATION TYPE: US abdomen complete DATE OF EXAM: 12/23/2020 COMPARISON: 06/2020 CLINICAL HISTORY: B19.10 Unspecified viral hepatitis B without hepat. EXAM MEASUREMENTS: Liver Length: 13.3 cm Gallbladder Wall: 0.2 cm CBD: 0.3 cm Spleen: 9.7 cm Right Kidney: 10.3x5.2x4.7 cm Left Kidney: 10.3x4.3x6.2 cm Pancreas: Limited by bowel gas. Visualized portions of the pancreas are Echogenic Liver: Increased attenuation, course texture Gallbladder: wnl Evidence for sonographic Sotelo's sign: No CBD: wnl Spleen: wnl Right Kidney: wnl Left Kidney: wnl Upper IVC: wnl Abd Aorta: wnl IMPRESSION: 1. Stable appearance of the liver correlate for hepatic steatosis versus hepatocellular disease, hepa titis. 2 correlate for pancreatic atrophy or fatty replacement
[2020-12-23 08:08] LABS: Basophils # (A) 0.1 k/uL (0-0.2); Basophils % (A) 1 %; Eosinophils # (A) 0.3 k/uL (0-0.7); Eosinophils % (A) 4 %; HCT 43.8 % (34.0-46.0); HGB 14.2 gm/dL (11.4-16.0); Lymphocytes # (A) 1.7 k/uL (1.0-4.8); Lymphocytes % (A) 24 %; MCH 28.2 pg (25.0-35.0); MCHC 32.4 g/dL (31.0-37.0); MCV 87.2 fL (80.0-100.0); Mean Platelet Volume 6.8; Monocytes # (A) 0.4 k/uL (0-1.0); Monocytes % (A) 6 %; Neutrophils # (A) 4.5 k/uL (1.3-7.7); Neutrophils % (A) 63 %; Platelet Count 296 k/uL (150-450); RBC 5.02 m/uL (3.80-5.40); RDW 12.8 % (11.5-15.5); WBC 7.1 k/uL (3.8-10.6)
[2020-12-23 08:21] LABS: Albumin 4.4 g/dL (3.5-5.0); Bilirubin, Delta 0.2 mg/dL (0.0-0.2); Bilirubin,Unconjugated 0.6 mg/dL (0.0-1.1); Total Bilirubin 0.8 mg/dL (0.2-1.3); Total Protein 7.3 g/dL (6.3-8.2)
== END | disposition home or self-care (01) ==
LOC: RADUSWWP 07:03
PROVIDERS: ATTEND Internal Medicine Gastroenterology
DX: K76.89 Other specified diseases of liver (principal)
CPT/HCPCS: 76700; 80076; 82105; 85025; 87517

== ENCOUNTER → 2021-01-08 | Outpatient (CLI) | payer BC ==
--- NOTE | 2021-01-08 13:59 | BD ---
EXAMINATION TYPE: Axial Bone Density DATE OF EXAM: 01/08/2021 COMPARISON: 07.06.2018 CLINICAL HISTORY: 65 YR OLD FEMALE....ICD-10 CODE: N95.8 MENOPAUSAL Height: 62.2 Weight: 169 FRAX RISK QUESTIONS: History of Fracture in Adulthood: YES 5. Chronic liver disease: FATTY LIVER, HEP B RISK FACTORS HISTORY OF: HX OF BOTH ANKLES BROKEN, AN ADULT Diet low in dairy products/other sources of calcium: YES Postmenopausal woman: YES, AT ABOUT 52, TOTAL HYST TO FOLLOW Take estrogen and/or progesterone medications: YES, IN THE PAST FOR ABOUT 2-3 YRS Hyperparathyroidism: NO Adrenal Insufficiency: NO MEDICATIONS: Additional Medications: STATIN FOR CHOLESTEROL, VIT D AND CALCIUM Additional History: CHOLESTEROL, HRT IN THE PAST EXAM MEASUREMENTS: Bone mineral densitometry was performed using the [employer] System. Bone mineral density as measured about the Lumbar spine is: ----- L1-L4(G/cm2): 1.173 T Score Values are as follows: ----- L1: -1.3 ----- L2: -0.5 ----- L3: 0.7 ----- L4: 0.5 ----- L1-L4: -0.1 Bone mineral density has: Decreased -0.2% since study of: 07.06.2018 Bone mineral density about the R hip (g/cm2): 0.929 Bone mineral density about the L hip (g/cm2): 0.885 T Score values are as follows: -----R Neck: -2.0 -----L Neck: -2.1 -----R Total: -0.6 -----L Total: -1.0 Bone mineral density has: Increased 2.5% since study of: 07.06.2018 FRAX%s: THERE IS A 31.8% CHANCE FOR A MAJOR OSTEOPOROTIC FX DONALD 3.0% FOR HIP......PROBABILITY FO R FX IN 10 YRS TIME IMPRESSION: Osteopenia (T Score between -2.5 and -1). There is slightly increased risk of fracture and the patient may be considered for treatment. Re-Screen 2-5 years. NOTE: T-SCORE=SD OF THE YOUNG ADULT MEAN.
--- NOTE | 2021-01-13 12:13 | MM ---
Reason for exam: screening (asymptomatic). Last mammogram was performed 1 year ago. History: Patient is postmenopausal and is nulliparous. Family history of breast cancer in maternal aunt at age 70. Reductions of both breasts, 1987. Took hormonal contraceptives for 5 years beginning at age 23. Took estrogen for 2 years beginning at age 49. Physical Findings: A clinical breast exam by your physician is recommended on an annual basis and results should be correlated with mammographic findings. MG 3D Screening Mammo W/Cad Bilateral CC and MLO view(s) were taken. Prior study comparison: January 08, 2020, bilateral MG 3d screening mammo w/cad. October 27, 2018, bilateral MG 3d screening mammo w/cad. There are scattered fibroglandular densities. No significant changes when compared with prior studies. ASSESSMENT: Negative, BI-RAD 1 RECOMMENDATION: Routine screening mammogram of both breasts in 1 year.
== END | disposition home or self-care (01) ==
LOC: RADMAMWWP 06:56
PROVIDERS: ATTEND Internal Medicine
DX: Z12.31 Encounter for screening mammogram for malignant neoplasm of breast (principal); Z85.89 Personal history of malignant neoplasm of other organs and systems; Z78.0 Asymptomatic menopausal state
CPT/HCPCS: 77063; 77067; 77080

== ENCOUNTER 2021-05-26 17:23 | Observation (INO) | payer BC ==
[2021-05-26] MEDS ORDERED: SODIUM CHLORIDE 0.9% 500 ML 500 ML IV STA (17:33)
[2021-05-26 18:14] LABS: Basophils # (A) 0.1 k/uL (0-0.2); Basophils % (A) 1 %; Eosinophils # (A) 0.4 k/uL (0-0.7); Eosinophils % (A) 3 %; HCT 43.1 % (34.0-46.0); HGB 14.1 gm/dL (11.4-16.0); Lymphocytes # (A) 2.3 k/uL (1.0-4.8); Lymphocytes % (A) 20 %; MCH 28.3 pg (25.0-35.0); MCHC 32.8 g/dL (31.0-37.0); MCV 86.4 fL (80.0-100.0); Mean Platelet Volume 7.2; Monocytes # (A) 0.5 k/uL (0-1.0); Monocytes % (A) 5 %; Neutrophils # (A) 7.9 k/uL (1.3-7.7); Neutrophils % (A) 69 %; Platelet Count 305 k/uL (150-450); RBC 4.99 m/uL (3.80-5.40); RDW 12.7 % (11.5-15.5); WBC 11.3 k/uL (3.8-10.6)
--- NOTE | 2021-05-26 18:22 | CT ---
EXAMINATION TYPE: CT brain wo con DATE OF EXAM: 05/26/2021 COMPARISON: 09/15/2012 HISTORY: Visual disturbance. CT DLP: 1099.4 mGycm Automated exposure control for dose reduction was used. Ventricles and sulci appear normal. There is no mass effect or midline shift. There is no sign of int racranial hemorrhage. Calvarium is intact. There is normal aeration of the mastoid sinuses. IMPRESSION: Negative unenhanced head CT scan. No change.
--- NOTE | 2021-05-26 18:23 | XR ---
EXAMINATION TYPE: XR chest 2V DATE OF EXAM: 05/26/2021 COMPARISON: 09/14/2012 HISTORY: Altered mental status TECHNIQUE: FINDINGS: Heart and mediastinum are normal. Lungs are clear. Diaphragm is normal. Bony thorax appears normal. IMPRESSION: Normal chest. No change.
[2021-05-26 18:24] LABS: Partial Thromboplastin Time 22.2 sec (22.0-30.0); Prothrombin Time 10.7 sec (9.0-12.0)
[2021-05-26 18:35] LABS: ALT 23 U/L (4-34); AST 56 U/L (14-36); African American GFR (CKD) >90 (>60 ml/min/1.73 sqM); Albumin 4.5 g/dL (3.5-5.0); Alkaline Phosphatase 113 U/L (38-126); Anion Gap 10 mmol/L; Blood Urea Nitrogen 18 mg/dL (7-17); Calcium 9.6 mg/dL (8.4-10.2); Carbon Dioxide 23 mmol/L (22-30); Chloride 106 mmol/L (98-107); Glucose 127 mg/dL (74-99); Non-African American GFR(CKD) 78 (>60 ml/min/1.73 sqM); Potassium 3.7 mmol/L (3.5-5.1); Sodium 139 mmol/L (137-145); Total Bilirubin 0.7 mg/dL (0.2-1.3); Total Protein 7.9 g/dL (6.3-8.2)
[2021-05-26] MEDS ORDERED: ASPIRIN 325 MG TAB PO STA (19:44)
--- NOTE | 2021-05-26 19:50 | ED ---
General Adult HPI - General Chief complaint: Neuro Symptoms/Deficit Stated complaint: TIA Time Seen by Provider: 05/26/21 17:30 Source: patient, RN notes reviewed, old records reviewed Mode of arrival: wheelchair Limitations: no limitations - History of Present Illness Initial comments: 66-year-old female presenting for evaluation of vision changes which began approximately 1700 and resolved within 5 or 10 minutes. Patient states that she's had several episodes similar to this over the past several months. This is exactly how her previous stroke had initially presented and then progressed to slurred speech. She states that she cannot have any slurring of her speech or facial droop or limb weakness.. - Related Data Home Medications Medication Instructions Recorded Confirmed Atorvastatin [Lipitor] 20 mg PO DAILY 12/22/13 05/26/21 Clopidogrel Bisulfate [Clopidogrel] 75 mg PO DAILY 12/22/13 05/26/21 Calcium Carbonate/Vitamin D3 1 tab PO DAILY 05/26/21 05/26/21 [Calcium 600 mg-Vit D3 10 mcg (400 Unit)] Multivitamins, Thera [Multivitamin 1 tab PO DAILY 05/26/21 05/26/21 (formulary)] Allergies Allergy/AdvReac Type Severity Reaction Status Date / Time cephalexin monohydrate Allergy Rash/Hives Verified 05/26/21 18:39 [From Keflex] morphine Allergy Itching Verified 05/26/21 18:39 Sulfa (Sulfonamide Allergy Abdominal Verified 05/26/21 18:39 Antibiotics) Pain STEROIDS AdvReac Uncoded 05/26/21 18:41 Review of Systems ROS Statement: Those systems with pertinent positive or pertinent negative responses have been documented in the HPI. ROS Other: All systems not noted in ROS Statement are negative. Past Medical History Past Medical History: CVA/TIA Additional Past Medical History / Comment(s): TIA IN AUGUST 2012 History of Any Multi-Drug Resistant Organisms: None Reported Past Surgical History: Breast Surgery, Hysterectomy, Orthopedic Surgery, Tubal Ligation Additional Past Surgical History / Comment(s): ORIF RIGHT ANKLE. BREAST REDUCTION. Past Anesthesia/Blood Transfusion Reactions: No Reported Reaction Past Psychological History: No Psychological Hx Reported Smoking Status: Never smoker Past Alcohol Use History: Occasional Past Drug Use History: None Reported - Past Family History Mother Family Medical History: Congestive Heart Failure (CHF) General Exam Limitations: no limitations General appearance: alert, in no apparent distress Head exam: Present: atraumatic, normocephalic Eye exam: Present: normal appearance, PERRL ENT exam: Present: normal exam Neck exam: Present: normal inspection Respiratory exam: Present: normal lung sounds bilaterally. Absent: respiratory distress, wheezes Cardiovascular Exam: Present: regular rate, normal rhythm GI/Abdominal exam: Present: soft. Absent: distended, tenderness Extremities exam: Present: normal inspection, normal capillary refill. Absent: calf tenderness Neurological exam: Present: alert, oriented X3, CN II-XII intact, other (No limb ataxia, NIH is 0). Absent: motor sensory deficit Psychiatric exam: Present: normal affect, normal mood Skin exam: Present: warm, dry, intact. Absent: cyanosis, diaphoretic Course Vital Signs 05/26/21 05/26/21 05/26/21 17:25 19:02 19:35 Temperature 97.4 F L Pulse Rate 108 H 80 105 H Respiratory 16 18 18 Rate Blood Pressure 164/93 173/88 171/95 O2 Sat by Pulse 99 98 99 Oximetry - Reevaluation(s) Reevaluation #1: 05/26/21 19:49 Patient's NIH is 0 and her symptoms have completely resolved. Not a TPA candidate. EKG Findings - EKG Comments: EKG Findings:: EKG sinus tachycardia rate of 101, IL interval 161, QRS duration 92, QTC [address] segment elevation. Medical Decision Making - Medical Decision Making 66-year-old female with present with vision changes consistent with previous TIA, CVA. Her symptoms had resolved prior to arrival. She has no limb weakness. No facial droop. Her speech is normal. She has an NIH of 0. Head CT is negative for intracranial hemorrhage or mass effect. Her laboratory testing is unremarkable. She is in sinus rhythm. She's given an aspirin in the emergency department. Given her history of previous TIA and CVA she will be placed in observation for further evaluation treatment. Neurology placed on c onsult. Case discussed with Dr. Quiros - Lab Data Result diagrams: 05/26/21 17:45 05/26/21 17:45 Lab Results 05/26/21 05/26/21 05/26/21 Range/Units 17:45 17:45 17:45 WBC 11.3 H (3.8-10.6) k/uL RBC 4.99 (3.80-5.40) m/uL Hgb 14.1 (11.4-16.0) gm/dL Hct 43.1 (34.0-46.0) % MCV 86.4 (80.0-100.0) fL MCH 28.3 (25.0-35.0) pg MCHC 32.8 (31.0-37.0) g/dL RDW 12.7 (11.5-15.5) % Plt Count 305 (150-450) k/uL MPV 7.2 Neutrophils % 69 % Lymphocytes % 20 % Monocytes % 5 % Eosinophils % 3 % Basophils % 1 % Neutrophils # 7.9 H (1.3-7.7) k/uL Lymphocytes # 2.3 (1.0-4.8) k/uL Monocytes # 0.5 (0-1.0) k/uL Eosinophils # 0.4 (0-0.7) k/uL Basophils # 0.1 (0-0.2) k/uL PT 10.7 (9.0-12.0) sec INR 1.0 (<1.2) APTT 22.2 (22.0-30.0) sec Sodium 139 (137-145) mmol/L Potassium 3.7 (3.5-5.1) mmol/L Chloride 106 (98-107) mmol/L Carbon Dioxide 23 (22-30) mmol/L Anion Gap 10 mmol/L BUN 18 H (7-17) mg/dL Creatinine 0.80 (0.52-1.04) mg/dL Est GFR (CKD-EPI)AfAm >90 (>60 ml/min/1.73 sqM) Est GFR (CKD-EPI)NonAf 78 (>60 ml/min/1.73 sqM) Glucose 127 H (74-99) mg/dL Calcium 9.6 (8.4-10.2) mg/dL Total Bilirubin 0.7 (0.2-1.3) mg/dL AST 56 H (14-36) U/L ALT 23 (4-34) U/L Alkaline Phosphatase 113 (38-126) U/L Troponin I (0.000-0.034) ng/mL Total Protein 7.9 (6.3-8.2) g/dL Albumin 4.5 (3.5-5.0) g/dL 05/26/21 Range/Units 17:45 WBC (3.8-10.6) k/uL RBC (3.80-5.40) m/uL Hgb (11.4-16.0) gm/dL Hct (34.0-46.0) % MCV (80.0-100.0) fL MCH (25.0-35.0) pg MCHC (31.0-37.0) g/dL RDW (11.5-15.5) % Plt Count (150-450) k/uL MPV Neutrophils % % Lymphocytes % % Monocytes % % Eosinophils % % Basophils % % Neutrophils # (1.3-7.7) k/uL Lymphocytes # (1.0-4.8) k/uL Monocytes # (0-1.0) k/uL Eosinophils # (0-0.7) k/uL Basophils # (0-0.2) k/uL PT (9.0-12.0) sec INR (<1.2) APTT (22.0-30.0) sec Sodium (137-145) mmol/L Potassium (3.5-5.1) mmol/L Chloride (98-107) mmol/L Carbon Dioxide (22-30) mmol/L Anion Gap mmol/L BUN (7-17) mg/dL Creatinine (0.52-1.04) mg/dL Est GFR (CKD-EPI)AfAm (>60 ml/min/1.73 sqM) Est GFR (CKD-EPI)NonAf (>60 ml/min/1.73 sqM) Glucose (74-99) mg/dL Calcium (8.4-10.2) mg/dL Total Bilirubin (0.2-1.3) mg/dL AST (14-36) U/L ALT (4-34) U/L Alkaline Phosphatase (38-126) U/L Troponin I <0.012 (0.000-0.034) ng/mL Total Protein (6.3-8.2) g/dL Albumin (3.5-5.0) g/dL Disposition Clinical Impression: Transient cerebral ischemia Disposition: ADMITTED IP TO THIS HOSP Condition: Stable Is patient prescribed a controlled substance at d/c from ED?: No Referrals: Lilly Hdez MD [Primary Care Provider] - 1-2 days Time of Disposition: 19:40 Decision to Admit Reason: Admit from EC Decision Date: 05/26/21
[2021-05-26] MEDS: SODIUM CHLORIDE 0.9% 1,000 ML IV SCH (20:14)
--- NOTE | 2021-05-26 21:14 | US ---
EXAMINATION TYPE: US carotid duplex BILAT DATE OF EXAM: 05/26/2021 COMPARISON: NONE CLINICAL HISTORY: Stenosis. TIA symptoms EXAM MEASUREMENTS: RIGHT: Peak Systolic Velocity (PSV) cm/sec ----- Right CCA: 87.1 ----- Right ICA: 76.9 ----- Right ECA: 170.0 ICA/CCA ratio: 0.9 RIGHT: End Diastole cm/sec ----- Right CCA: 24.0 ----- Right ICA: 19.8 ----- Right ECA: 22.7 LEFT: Peak Systolic Velocity (PSV) cm/sec ----- Left CCA: 83.2 ----- Left ICA: 89.6 ----- Left ECA: 125.0 ICA/CCA ratio: 1.1 LEFT: End Diastole cm/sec ----- Left CCA: 18.8 ----- Left ICA: 29.2 ----- Left ECA: 10.4 VERTEBRALS (direction of flow): Right Vertebral: Antegrade Left Vertebral: Antegrade Rhythm: Normal Mild plaque formation IMPRESSION: There is antegrade flow in the vertebral arteries. Conclusion measurement suggests less than 20% stenosis in both internal carotid arteries. Criteria for Assigning % of Stenosis / Diameter reduction (Estimation based on the indirect measurements of the internal carotid artery velocities (ICA PSV). 1. Normal (no stenosis)=ICA PSV < 125 cm/s: ratio < 2.0: ICA EDV<40 cm/s. 2. Less than 50% stenosis=ICA PSV < 125 cm/s: ratio < 2.0: ICA EDV<40 cm/s. 3. 50 to 69% stenosis=ICA PSV of 125 to 230 cm/s: ration 2.0 ? 4.0: ICA EDV 40-100 cm/s. 4. Greater than 70% stenosis to near occlusion= ICA PSV > 230 cm/s: ratio > 4.0: ICA EDV > 100 cm/s. 5. Near occlusion= ICA PSV velocities may be low or undetectable: variable ratio and ICA EDV. 6. Total occlusion=unable to detect flow.
[2021-05-27] MEDS ORDERED: ATORVASTATIN 80 MG TAB PO STA (01:36)
--- NOTE | 2021-05-27 01:37 | P.HPIM ---
History of Present Illness H&P Date: 05/26/21 Patient is a 66-year-old female with a PMH of hyperlipidemia and history of TIA who presents to the emergency room with complaints of visual impairments and headache. Patient reports that her symptoms started around 4:55 PM earlier today, with zig zagging lines across her vision, lasting for roughly 9 minutes, followed by a diffuse headache, which lasted for upwards of an hour. The patient reports that she has had similar symptoms multiple times in the past, and that in 2018 at her initial episode, she was evaluated by neurology and was suspected to have had a TIA. She reports no changes in her speech, no weakness, numbness, or tingling. She also denied experiencing cough, fever, chills, chest pain, shortness of breath, nausea, vomiting, abdominal pain, diarrhea. CT brain in the emergency room was unremarkable. Chest x-ray was also unremarkable. EKG revealed sinus tachycardia with PVCs at 101 bpm with T-wave inversion in lead III and T-wave flattening in lead aVF. Laboratory evaluation revealed WBC 11.3, troponin less than 0.012. Review of systems: Pertinent positives and negatives as discussed in HPI, a complete review of systems was performed and all other systems are negative. Physical examination: General: non toxic, no distress, appears at stated age, obese Derm: no unusual rashes/lesions no unusual ecchymoses, warm, dry Head: atraumatic, normocephalic, symmetric Eyes: EOMI, no lid lag, anicteric sclera, pupils equal round reactive to light ENT: Nose and ears atraumatic, no thrush, no pharyngeal erythema Neck: No thyromegaly, no cervical lymphadenopathy, trachea midline, supple Mouth: no lip lesion, mucus membranes moist Cardiovascular: S1S2 reg, no murmur, positive posterior tibial pulse bilateral, no edema, capillary refill less than 2 seconds Lungs: CTA bilateral, no rhonchi, no rales , no accessory muscle use Abdominal: soft, nontender to palpation, no guarding, no appreciable organomegaly, normal bowel sounds Ext: no gross muscle atrophy, muscle strength 5 out of 5 in all 4 extremities grossly, no contractures, Neuro: CN II-XI grossly intact, light touch intact all 4 extremities, finger to nose within normal limits, no pronator drift Psych: Alert, oriented, appropriate affect Assessment/plan Visual impairment and headache, suspected complex migraine with aura versus TIA -Neurology consult -Continue with aspirin -Neuro checks Chronic conditions: Hyperlipidemia -Continue with home meds DVT prophylaxis -Heparin subq The patient is admitted with an anticipated less than 2 midnight stay for evaluation of visual impairements CODE STATUS: Full Code Discussed with: Patient Anticipated discharge date: in am Anticipated discharge place: Home Past Medical History Past Medical History: CVA/TIA Additional Past Medical History / Comment(s): TIA IN AUGUST 2012 History of Any Multi-Drug Resistant Organisms: None Reported Past Surgical History: Breast Surgery, Hysterectomy, Orthopedic Surgery, Tubal Ligation Additional Past Surgical History / Comment(s): ORIF RIGHT ANKLE. BREAST REDUCTION. Past Anesthesia/Blood Transfusion Reactions: No Reported Reaction Past Psychological History: No Psychological Hx Reported Smoking Status: Never smoker Past Alcohol Use History: Occasional Past Drug Use History: None Reported - Past Family History Mother Family Medical History: Congestive Heart Failure (CHF) Medications and Allergies Home Medications Medication Instructions Recorded Confirmed Type Atorvastatin [Lipitor] 20 mg PO DAILY 12/22/13 05/26/21 History Clopidogrel Bisulfate [Clopidogrel] 75 mg PO DAILY 12/22/13 05/26/21 History Calcium Carbonate/Vitamin D3 1 tab PO DAILY 05/26/21 05/26/21 History [Calcium 600 mg-Vit D3 10 mcg (400 Unit)] Multivitamins, Thera [Multivitamin 1 tab PO DAILY 05/26/21 05/26/21 History (formulary)] Allergies Allergy/AdvReac Type Severity Reaction Status Date / Time cephalexin monohydrate Allergy Rash/Hives Verified 05/26/21 18:39 [From Keflex] morphine Allergy Itching Verified 05/26/21 18:39 Sulfa (Sulfonamide Allergy Abdominal Verified 05/26/21 18:39 Antibiotics) Pain STEROIDS AdvReac Uncoded 05/26/21 18:41 Physical Exam Vitals: Vital Signs Temp Pulse Resp BP Pulse Ox 05/26/21 19:35 105 H 18 171/95 99 05/26/21 19:02 80 18 173/88 98 05/26/21 17:25 97.4 F L 108 H 16 164/93 99 Intake and Output 05/26/21 05/26/21 05/26/21 06:59 14:59 22:59 Other: Weight 77.111 kg Results CBC & Chem 7: 05/26/21 17:45 05/26/21 17:45 Labs: Abnormal Lab Results - Last 24 Hours (Table) 05/26/21 05/26/21 Range/Units 17:45 17:45 WBC 11.3 H (3.8-10.6) k/uL Neutrophils # 7.9 H (1.3-7.7) k/uL BUN 18 H (7-17) mg/dL Glucose 127 H (74-99) mg/dL AST 56 H (14-36) U/L
[2021-05-27 09:18] LABS: Chol/HDL Ratio 2.97 Ratio; LDL Cholesterol,Calculated 69.9 mg/dL (0.0-131.0); VLDL Calculation 16.96 mg/dL (5.00-40.00)
[2021-05-27] MEDS: ATORVASTATIN 20 MG TAB PO SCH (09:43)
[2021-05-27] MEDS: CLOPIDOGREL 75 MG TAB PO SCH (09:43)
[2021-05-27] MEDS: ASPIRIN 325 MG TAB PO SCH (09:43)
--- NOTE | 2021-05-27 09:57 | P.CNNES ---
History of Present Illness Consult date: 05/27/21 Requesting physician: Kelechi Castanon Reason for Consult: TIA History of Present Illness: This is a 66-year-old woman with history of TIA who presented emergency department on 05/26/2021 for evaluation of visual change. She stated that it began on 05/26/2021 arounf 5 PM and resolved within 8-9 minutes. She describes episodes as a jacket lines over both eyes and then after the episodes she would have a mild anterior temporal headache. She stated the headache are about 2- 3/10 and they feel her pressure. She denies any photophobia, phonophobia, nausea or vomiting. Any difficulty getting her words out, difficult swallowing, any weakness or numbness. She is aware during his episode. She denies of any urinary or bowel incontinence. She denies any history of migraines in the past. She had a previous episode similar to this last 2 months ago. She initially had similar presentation like this also on 2012 but the episode she also had afterwards difficulty getting her words out. In 2013 it was thought she had TIA. Patient is on home medication of Plavix 75 mg and Lipitor 20 mg daily. She stated that she was started on Plavix by her store clerk cashier. She denies of any tobacco use or alcohol use or any illicit drug use. Of note in 2013 patient the because of the episode that she saw Dr. Palomino as that her neurologist and she had an EEG and well as she had MRI and the MRI was not suggestive of a stroke but had some nonspecific white matter lesion. She said that she had an EEG in 2013 and what was notified that was normal. Some of the workup in the hospital consisted of: Initial vital signs was blood pressure 154/93, heart rate of 18, cirrhosis 16, temperature of 97.4 Fahrenheit oral and pulse ox of 99% room air. Initial white blood cells 11.3 and it slightly neutrophilic otherwise rest of CBC with differential is unremarkable Chemistry panel is AST is 56 which is minimally elevated BUN is 18 otherwise rest of the temperature panel is unremarkable. CT of the head is reported as negative on has had computed tomography scan. No change. I personally reviewed the CT of the head and there is no acute or subacute ischemia there is no encephalomalacia that was appreciable and there is no intraparenchymal hemorrhage Carotid duplex is reported as measurements suggest less than 20% stenosis in both internal carotid arteries. NIH stroke scale is 0. Review of Systems Review of system: The 12 point system was reviewed and apparent positive and negative per HPI. Past Medical History Past Medical History: CVA/TIA Additional Past Medical History / Comment(s): TIA IN AUGUST 2012 History of Any Multi-Drug Resistant Organisms: None Reported Past Surgical History: Breast Surgery, Hysterectomy, Orthopedic Surgery, Tubal Ligation Additional Past Surgical History / Comment(s): ORIF RIGHT ANKLE. BREAST REDUCTION. Past Anesthesia/Blood Transfusion Reactions: No Reported Reaction Past Psychological History: No Psychological Hx Reported Smoking Status: Never smoker Past Alcohol Use History: Occasional Past Drug Use History: None Reported - Past Family History Mother Family Medical History: Congestive Heart Failure (CHF) Medications and Allergies Home Medications Medication Instructions Recorded Confirmed Type Atorvastatin [Lipitor] 20 mg PO DAILY 12/22/13 05/26/21 History Clopidogrel Bisulfate [Clopidogrel] 75 mg PO DAILY 12/22/13 05/26/21 History Calcium Carbonate/Vitamin D3 1 tab PO DAILY 05/26/21 05/26/21 History [Calcium 600 mg-Vit D3 10 mcg (400 Unit)] Multivitamins, Thera [Multivitamin 1 tab PO DAILY 05/26/21 05/26/21 History (formulary)] Allergies Allergy/AdvReac Type Severity Reaction Status Date / Time cephalexin monohydrate Allergy Rash/Hives Verified 05/26/21 18:39 [From Keflex] morphine Allergy Itching Verified 05/26/21 18:39 Sulfa (Sulfonamide Allergy Abdominal Verified 05/26/21 18:39 Antibiotics) Pain STEROIDS AdvReac Uncoded 05/26/21 18:41 Physical Examination - Vital Signs Vital Signs: Vital Signs Temp Pulse Pulse Resp BP BP Pulse Ox 05/27/21 07:04 97.7 F 58 L 14 146/78 98 05/27/21 02:13 97.8 F 59 L 15 153/82 99 05/26/21 20:42 98.3 F 95 15 179/93 97 05/26/21 19:35 105 H 18 171/95 99 05/26/21 19:02 80 18 173/88 98 05/26/21 17:25 97.4 F L 108 H 16 164/93 99 Intake and Output 04/11/22 04/12/22 04/12/22 22:59 06:59 14:59 Other: Voiding Method Toilet # Voids 2 2 Weight 77.111 kg GENERAL: The patient is lying in bed and is not in acute distress. CHEST: The heart rate is regular rate rhythm. No murmurs to auscultation. No carotid bruit bilaterally. LUNG: Clear to auscultation bilaterally no wheezing noted throughout. Not labored breathing. ABDOMEN/GI: Bowel sounds present in all 4 quadrants. No tenderness to palpation throughout. NEUROLOGICAL: Higher mental function: The patient is awake, alert, oriented to self, place and time. Patient is following commands. No aphasia and no neglect. Cranial nerves: The pupils are round, equal and reactive to light and accommodation. Visual chinchilla are full to confrontation throughout. Extraocular movement is intact no nystagmus is noted. Facial sensation is normal to touch throughout. The facial strength is normal throughout. Hearing is normal bilaterally to hand rub. Tongue is midline and moved [id number] without any difficulty. No dysarthria is noted. Shoulder shrug is normal bilaterally. Motor: The strength is 5 over 5 throughout. Normal tone and bulk. Cerebellum: Normal finger to nose heel to martinez bilaterally. Sensation: Sensation is normal to touch throughout. Reflexes (right/left): 2+ throughout. Plantars are downgoing bilaterally. Results - Laboratory Findings CBC and BMP: 05/26/21 17:45 05/26/21 17:45 Abnormal Lab Findings: Abnormal Labs 05/26/21 04 17:45 17:45 WBC 11.3 H Neutrophils # 7.9 H BUN 18 H Glucose 127 H AST 56 H Assessment and Plan Assessment: Episode of jagged-line over both eyes followed by headache over the anterior temporal likely due to complicated migraine. I feel stroke/TIA seems atypical for her presentation. History of reported TIA (has similar episode of jagged-line, then headache then aphasia: I feel more complicated migraine) History of Hepatitis B (from ) Plan: The patient was started on aspirin 325 daily by ED team and was continued on her home dose of Plavix 75 mg daily. Patient to be on dual antiplatelet for 30 days then she'll speak with her store clerk cashier on discontinuing Plavix and to resume aspirin. She was given Lipitor 80 mg once by ED team and was continued on his home dose of Lipitor 20 mg daily. I ordered MRI of the brain with and without. Ordered TSH level, ESR and CRP level. Patient was to hold off on any migraine medication at this time since they're not frequent. We'll re-address this after workup was done. 2-D echo, lipid panel are ordered and pending PT OT and TECHNICAL DATA ANALYST are consulted Continue neuro checks On cardiac monitoring We'll defer the rest of the medical management to the primary team Upon discharge recommend the patient to follow-up with a neurologist within 1-2 weeks. The plan discussed with the patient as well as her nurse. Thank you for the consultation Prasad Cardoso M.D. Neuro-hospitalist Time with Patient: Greater than 30
--- NOTE | 2021-05-27 12:59 | ECHOF ---
Referral Reason:Thrombus MEASUREMENTS -------- HEIGHT: 157.5 cm WEIGHT: 77.1 kg BP: 153/82 RVIDd: 3.1 cm (< 3.3) IVSd: 1.0 cm (0.6 - 1.1) LVIDd: 4.0 cm (3.9 - 5.3) LVPWd: 0.9 cm (0.6 - 1.1) IVSs: 1.5 cm LVIDs: 2.4 cm LVPWs: 1.4 cm LA Diam: 3.1 cm (2.7 - 3.8) LAESV Index (A-L): 17.55 ml/m Ao Diam: 2.6 cm (2.0 - 3.7) AV Cusp: 1.9 cm (1.5 - 2.6) MV EXCURSION: 12.755 mm (> 18.000) MV EF SLOPE: 61 mm/s (70 - 150) EPSS: 0.3 cm MV E Chaitanya: 0.83 m/s MV DecT: 282 ms MV A Chaitanya: 0.93 m/s MV E/A Ratio: 0.89 AR PHT: 539 ms RAP: 5.00 mmHg RVSP: 22.70 mmHg FINDINGS -------- Sinus rhythm. This was a technically good study. The left ventricular size is normal. Left ventricular wall thickness is normal. Overall left vent ricular systolic function is normal with, an EF between 60 - 65 %. The right ventricle is normal in size. Normal LA size by volume 22+/-6 ml/m2. The right atrium is normal in size. Interatrial and interventricular septum intact. There is mild aortic regurgitation. There is trace to mild mitral regurgitation. Mild tricuspid regurgitation present. Right ventricular systolic pressure is normal at < 35 mmHg. Trace/mild (physiologic) pulmonic regurgitation. The aortic root size is normal. Normal inferior vena cava with normal inspiratory collapse consistent with estimated right atrial pre ssure of 5 mmHg. There is no pericardial effusion. CONCLUSIONS -------- 1. The left ventricular size is normal. 2. Left ventricular wall thickness is normal. 3. Overall left ventricular systolic function is normal with, an EF between 60 - 65 %. 4. There is mild aortic regurgitation. 5. There is trace to mild mitral regurgitation. 6. Mild tricuspid regurgitation present. 7. Trace/mild (physiologic) pulmonic regurgitation. 8. There is no pericardial effusion. PHTHALIC ACID PURIFIER: Elle Ortiz RDCS
[2021-05-27] MEDS: SODIUM CHLORIDE 0.9% 1,000 ML IV SCH ×2 (16:16→16:17)
--- NOTE | 2021-05-27 16:29 | P.PN ---
Subjective Progress Note Date: 05/27/21 Hospital course: Patient is a 66-year-old female with a PMH of hyperlipidemia and history of TIA who presents to the emergency room with complaints of visual impairments and headache. Patient reports that her symptoms started around 4:55 PM earlier today, with zig zagging lines across her vision, lasting for roughly 9 minutes, followed by a diffuse headache, which lasted for upwards of an hour. The patient reports that she has had similar symptoms multiple times in the past, and that in 2018 at her initial episode, she was evaluated by neurology and was suspected to have had a TIA. She reports no changes in her speech, no weakness, numbness, or tingling. She also denied experiencing cough, fever, chills, chest pain, shortness of breath, nausea, vomiting, abdominal pain, diarrhea. CT brain in the emergency room was unremarkable. Chest x-ray was also unremarkable. EKG revealed sinus tachycardia with PVCs at 101 bpm with T-wave inversion in lead III and T-wave flattening in lead aVF. Laboratory evaluation revealed WBC 11.3, troponin less than 0.012. Physical exam: Patient seen and fully evaluated at the bedside this morning. Patient reports she can still feel a slight pressure-like sensation in the left temporal region of her head otherwise reports full resolution of previously reported visual impairment flashing lights like lightening that she was previously experiencing. Patient denies having any other complaints including difficulties with or changes in her speech, memory problems, dysphasia, chest pain, palpitations, shortness of breath, or experiencing any numbness/tingling/weakness in her extremities. Vital signs reviewed and stable. General: Nontoxic, no distress and appears stated age. Derm: Skin warm and dry, normal coloration for ethnicity. Head: Atraumatic, normocephalic and symmetric. Eyes: EOMs intact, no lid lag, and anicteric sclera Mouth: no lip lesions, mucus membranes moist Cardiovascular: regular rate and rhythm with normal S1S2, no murmur, positive posterior tibial pulses bilaterally, and cap refill < 2 seconds. Lungs: Respirations even, regular, and unlabored on room air. Lungs CTA bilaterally, no rhonchi, no rales, no wheezing, and no accessory muscle usage. Abdominal: soft, nontender to palpation, no guarding, no appreciable organomegaly Ext: ROM intact. No gross muscle atrophy, no edema, no contractures Neuro: Speech clear, face symmetrical and CN II-XII grossly intact with no noted focal neuro deficits Psych: Alert and oriented to person, place, time, and situation. Appropriate and pleasant affect. Assessment and Plan of Care: Visual impairment and headache, suspected complex migraine with aura versus TIA -Neurology consult -Continue with aspirin -Neuro checks -Awaiting MRI to be completed this afternoon scheduled for 3 PM Chronic conditions: Hyperlipidemia -Continue with home meds CODE STATUS: Full Code DVT prophylaxis: Heparin Discussed with: Patient Anticipated discharge date: Likely later this evening status post completion of MRI Anticipated discharge place: Home A total of 34 minutes was spent on the care of this complex patient more than 50% of the time was spent in counseling and care coordination. Mayank Sharp NP rendered care for this patient independently, reviewed the findings and plan as documented in the note above. I did not physically speak with or examine the patient on this date. Objective - Vital Signs Vital signs: Vital Signs Temp 98.1 F 05/27/21 13:43 Pulse 62 05/27/21 13:43 Resp 16 05/27/21 13:43 BP 139/79 05/27/21 13:43 Pulse Ox 98 05/27/21 13:43 Intake & Output 05/26/21 05/27/21 05/27/21 18:59 06:59 18:59 Intake Total 358 Balance 358 Weight 77.111 kg 77.111 kg Intake: Oral 358 Other: Voiding Method Toilet Toilet # Voids 2 1 - Labs CBC & Chem 7: 05/26/21 17:45 05/26/21 17:45 Labs: Abnormal Lab Results - Last 24 Hours (Table) 05/26/21 05/26/21 Range/Units 17:45 17:45 WBC 11.3 H (3.8-10.6) k/uL Neutrophils # 7.9 H (1.3-7.7) k/uL BUN 18 H (7-17) mg/dL Glucose 127 H (74-99) mg/dL AST 56 H (14-36) U/L
[2021-05-28] MEDS: SODIUM CHLORIDE 0.9% 1,000 ML IV SCH (04:29)
[2021-05-28 07:23] VITALS: RESP 15
[2021-05-28] MEDS: CLOPIDOGREL 75 MG TAB PO SCH (08:55)
[2021-05-28] MEDS: ATORVASTATIN 20 MG TAB PO SCH (08:55)
[2021-05-28] MEDS: ASPIRIN 325 MG TAB PO SCH (08:55)
[2021-05-28 13:18] VITALS: BP 126/86; PULSE 60; TEMP 98.1
--- NOTE | 2021-05-28 13:34 | MR ---
EXAMINATION TYPE: MR brain wo/w con DATE OF EXAM: 05/28/2021 COMPARISON: CT brain 2 days ago. HISTORY: Headache, visual disturbance TECHNIQUE: Multiplanar, multisequence images of the brain and brainstem is performed without and with IV contras t, utilizing 8 mL intravenous Gadavist . FINDINGS: Diffusion weighted images demonstrate no evidence of a recent infarct or other diffusion ab normality. The ventricular system and cisternal spaces are normal in size and appearance. The brain volume is age appropriate. Scattered foci of T2 hyperintensity are seen. The white matter bilaterally . Approximately 15 scattered lesions are seen. Lesions are nonspecific in appearance and distribution . No suspicious fluid signal bilateral mastoid air cells. Midline structures demonstrate normal morphology. The craniocervical junction appears within normal limits. Post contrast images demonstrate no abnormal enhancement. The dural venous sinuses appear pa tent. The visualized sinuses are clear and the globes are intact. IMPRESSION: Mild nonspecific white matter changes could be on basis of altered vascular mechanics rel ated to product of chronic migraine headaches. Other etiologies are not excluded. No abnormal enhance ment or enhancing masses are identified.
--- NOTE | 2021-05-28 14:20 | P.DS ---
Providers Date of admission: 05/26/21 19:44 Expected date of discharge: 05/28/21 Attending physician: Gisela Travis DO Consults: 05/26/21 19:45 Consult Physician Routine Consulting Provider: Prasad Cardoso Consult Reason/Comments: TIA Do you want consulting provider notified?: Yes Primary care physician: Lilly Hdez Hospital Course: Discharge Diagnosis: Visual impairment and headache, suspected complex migraine Hyperlipidemia Hospital Course: Patient is a 66-year-old female with a PMH of hyperlipidemia and history of TIA who presents to the emergency room with complaints of visual impairments and headache. Patient reports that her symptoms started around 4:55 PM earlier today, with zig zagging lines across her vision, lasting for roughly 9 minutes, followed by a diffuse headache, which lasted for upwards of an hour. The patient reports that she has had similar symptoms multiple times in the past, and that in 2018 at her initial episode, she was evaluated by neurology and was suspected to have had a TIA. She reports no changes in her speech, no weakness, numbness, or tingling. She also denied experiencing cough, fever, chills, chest pain, shortness of breath, nausea, vomiting, abdominal pain, diarrhea. CT brain in the emergency room was unremarkable. Chest x-ray was also unremarkable. EKG revealed sinus tachycardia with PVCs at 101 bpm with T-wave inversion in lead III and T-wave flattening in lead aVF. Laboratory evaluation revealed WBC 11.3, troponin less than 0.012. Echocardiogram was completed showing normal EF between 60 and 65% with no significant valvular abnormalities. Lipid profile was unremarkable. CRP 0.40. MRI revealing mild nonspecific white matter changes could be on basis of altered vascular mechanics related to product of chronic migraine headaches. Patient was started on aspirin 325 mg daily and neurology (Dr. Cardoso) recommending follow-up outpatient in their office in one week. Patient is medically stable for discharge at this time all symptoms have resolved prior to arrival to our facility. Patient is medically stable and to follow up with her PCP in 1-2 days and neurology in 1 week. Physical exam: Vital signs reviewed and stable. General: Nontoxic, no distress and appears stated age. Derm: Skin warm and dry, normal coloration for ethnicity. Head: Atraumatic, normocephalic and symmetric. Eyes: EOMs intact, no lid lag, and anicteric sclera Mouth: no lip lesions, mucus membranes moist Cardiovascular: regular rate and rhythm with normal S1S2, no murmur, positive posterior tibial pulses bilaterally, and cap refill < 2 seconds. Lungs: Respirations even, regular, and unlabored on room air. Lungs CTA bilaterally, no rhonchi, no rales, no wheezing, and no accessory muscle usage. Abdominal: soft, nontender to palpation, no guarding, no appreciable organomegaly Ext: ROM intact. No gross muscle atrophy, no edema, no contractures Neuro: Speech clear, face symmetrical and CN II-XII grossly intact with no noted focal neuro deficits Psych: Alert and oriented to person, place, time, and situation. Appropriate and pleasant affect. A total of 35 minutes of time were spent preparing this complex discharge summary. Mayank Sharp NP rendered care for this patient independently, reviewed the findings and plan as documented in the note above. I did not physically speak with or examine the patient on this date. Patient Condition at Discharge: Stable Plan - Discharge Summary New Discharge Prescriptions: New Aspirin 325 mg PO DAILY tab Continue Atorvastatin [Lipitor] 20 mg PO DAILY Clopidogrel Bisulfate [Clopidogrel] 75 mg PO DAILY Multivitamins, Thera [Multivitamin (formulary)] 1 tab PO DAILY Calcium Carbonate/Vitamin D3 [Calcium 600 mg-Vit D3 10 mcg (400 Unit)] 1 tab PO DAILY Discharge Medication List Atorvastatin [Lipitor] 20 mg PO DAILY 12/22/13 [History] Clopidogrel Bisulfate [Clopidogrel] 75 mg PO DAILY 12/22/13 [History] Calcium Carbonate/Vitamin D3 [Calcium 600 mg-Vit D3 10 mcg (400 Unit)] 1 tab PO DAILY 05/26/21 [History] Multivitamins, Thera [Multivitamin (formulary)] 1 tab PO DAILY 05/26/21 [History] Aspirin 325 mg PO DAILY tab 05/28/21 [Rx] Follow up Appointment(s)/Referral(s): Kasey Palomino MD [REFERRING] - 1 Week Lilly Hdez MD [Primary Care Provider] - 1-2 days Patient Instructions/Handouts: Migraine Headache (GEN), Ocular Migraine (GEN) Activity/Diet/Wound Care/Special Instructions: Activity: As tolerated. Take breaks as needed. Diet: Heart healthy and carb consistent diet. Avoid salts, or foods with hidden salts such as canned or boxed foods and frozen dinners. Extra salt makes your heart work harder and traps the fluid in your body for longer. Special Instructions: Take all of your medications as directed and remember to keep all of your doctor's appointments and follow-up as needed. He will be following up with Dr. Madden in his office for continued long-term monitoring and management. Also recommend starting aspirin 325 mg daily as directed by neurologist. Thank you for allowing us to participate in your care, it was truly a pleasure having you for our patient!!! Discharge Disposition: HOME SELF-CARE
--- NOTE | 2021-05-28 16:14 | P.PN ---
Subjective Progress Note Date: 05/28/21 The patient is seen at bedside and feels she is doing much better. Denies of any new neurological issues. Denies of any vision issues. Objective - Vital Signs Vital signs: Vital Signs Temp 98.1 F 05/28/21 13:17 Pulse 60 05/28/21 13:17 Resp 15 05/28/21 13:17 BP 126/86 05/28/21 13:17 Pulse Ox 97 05/28/21 13:17 Intake & Output 05/27/21 05/28/21 05/28/21 18:59 06:59 18:59 Intake Total 476 400 Balance 476 400 Intake: Oral 476 400 Other: Voiding Method Toilet Toilet # Voids 1 2 - Exam GENERAL: The patient is lying in bed and is not in acute distress. NEUROLOGICAL: Higher mental function: The patient is awake, alert, oriented to self, place and time. Patient is following commands. No aphasia and no neglect. Cranial nerves: The pupils are round, equal and reactive to light and accommodation. Visual chinchilla are full to confrontation throughout. Extraocular movement is intact no nystagmus is noted. Facial sensation is normal to touch throughout. The facial strength is normal throughout. Hearing is normal bilat erally to hand rub. Tongue is midline and moved [id number] without any difficulty. No dysarthria is noted. Shoulder shrug is normal bilaterally. Motor: The strength is 5 over 5 throughout. Normal tone and bulk. Cerebellum: Normal finger to nose heel to martinez bilaterally. Sensation: Sensation is normal to touch throughout. Reflexes (right/left): 2+ throughout. Plantars are downgoing bilaterally. WORK-UP: TSH: 2.60 CRP: 0.40 ESR: 3 Lipid panel: TG 84, Cholestrol 131, LDL 69, HDL 44. CT of the head is reported as negative on has had computed tomography scan. No change. I personally reviewed the CT of the head and there is no acute or subacute ischemia there is no encephalomalacia that was appreciable and there is no intraparenchymal hemorrhage Carotid duplex is reported as measurements suggest less than 20% stenosis in both internal carotid arteries. MRI Brain: Is reported as mild nonspecific white matter changes could be on basis of altered vascular mechanics related to product of chronic migraine headaches. Other account financial manager are not excluded. No abnormal enhancement or enhancing masses are identified. I reviewed the images and there is no acute or subacute ischemic stroke. I agree there is no enhancing lesion. 2D echo: Is reported as Left ventricular wall thickness is normal. EF 60-65%. Normal LA size by volume. - Labs CBC & Chem 7: 05/26/21 17:45 05/26/21 17:45 Assessment and Plan Assessment: Episode of jagged-line over both eyes followed by headache over the anterior temporal likely due to complicated migraine. I feel stroke/TIA is unlikely but cannot be excluded. History of reported TIA (has similar episode of jagged-line, then headache then aphasia: I feel more complicated migraine) History of Hepatitis B (from ) Plan: Continue Plavix 75 mg daily (home dose) and was started on ASA 325mg daily. 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 Continue home dose of Lipitor 20 mg daily. Patient was to hold off on any migraine medication at this time since they're not frequent. PT OT and MASTER FISHER are consulted Continue neuro checks On cardiac monitoring We'll defer the rest of the medical management to the primary team Upon discharge recommend the patient to follow-up with a neurologist within 1-2 weeks. There is no additional work-up needed at this time. The plan discussed with the patient as well as her nurse. Prasad Cardoso M.D. Neuro-hospitalist Time with Patient: Less than 30
== END 2021-05-28 14:46 | disposition home or self-care (01) ==
LOC: EC 17:23 → 6NMEDSUR 19:44
PROVIDERS: ADMIT Internal Medicine; ATTEND Internal Medicine
DX: R51.9 Headache, unspecified (principal); H53.8 Other visual disturbances; Z86.73 Personal history of transient ischemic attack (TIA), and cerebral infarction without residual deficits; R00.0 Tachycardia, unspecified; E78.5 Hyperlipidemia, unspecified; I49.3 Ventricular premature depolarization; I08.3 Combined rheumatic disorders of mitral, aortic and tricuspid valves; E66.9 Obesity, unspecified; Z68.31 Body mass index [BMI] 31.0-31.9, adult; Z71.9 Counseling, unspecified; Z86.19 Personal history of other infectious and parasitic diseases; Z79.899 Other long term (current) drug therapy; Z79.02 Long term (current) use of antithrombotics/antiplatelets; Z88.1 Allergy status to other antibiotic agents; Z88.5 Allergy status to narcotic agent; Z88.2 Allergy status to sulfonamides; Z88.8 Allergy status to other drugs, medicaments and biological substances; Z90.710 Acquired absence of both cervix and uterus; Z82.49 Family history of ischemic heart disease and other diseases of the circulatory system
CPT/HCPCS: 96361 ×3; 96360; 99285; 36415; 93005; 93306; 97161; 97165; 80061; 80053; 85652; 84443; 84484; 85025; 85610; 85730; 86140; 71046; 93880; 70450; 70553; G0378 ×3; A9585

== ENCOUNTER → 2021-06-26 | Outpatient (CLI) | payer BC ==
[2021-06-26 10:36] LABS: Basophils # (A) 0.07 X 10*3/uL (0.00-0.10); Eosinophils # (A) 0.33 X 10*3/uL (0.04-0.35); Eosinophils % (A) 4.6 %; HCT 43.9 % (37.2-46.3); HGB 13.5 g/dL (12.0-15.0); Immature Grans, Automated 0.3 %; Lymphocytes # (A) 2.05 X 10*3/uL (0.90-5.00); Lymphocytes % (A) 28.5 %; MCH 27.6 pg (27.0-32.0); MCHC 30.8 g/dL (32.0-37.0); MCV 89.8 fL (80.0-97.0); Mean Platelet Volume 9.9 fL (9.5-12.2); Monocytes # (A) 0.61 X 10*3/uL (0.20-1.00); Monocytes % (A) 8.5 %; NRBC Per 100 WBC 0 /100 WBCS (0.0-0.0); Neutrophils # (A) 4.12 X 10*3/uL (1.80-7.70); Neutrophils % (A) 57.1 %; Platelet Count 300 X 10*3/uL (140-440); RBC 4.89 X 10*6/uL (4.10-5.20); RDW 12.6 % (11.5-14.5)
[2021-06-26 10:45] LABS: African American GFR (CKD) 109.5 (60.0-200.0); Albumin 4.3 g/dL (3.8-4.9); Albumin/Globulin Ratio 1.59 (1.60-3.17); Anion Gap 10.4 mmol/L (10.00-18.00); BUN/Creat Ratio 18.52 Ratio (12.00-20.00); Blood Urea Nitrogen 11.8 mg/dL (9.0-27.0); Calcium 9.3 mg/dL (8.7-10.3); Carbon Dioxide 25.6 mmol/L (20.0-27.5); Globulin 2.7 g/dL (1.6-3.3); Non-African American GFR(CKD) 94.5 (60.0-200.0); Potassium 4.3 mmol/L (3.5-5.5); Total Bilirubin 0.6 mg/dL (0.30-1.20)
[2021-06-26 11:55] LABS: INR 0.99 (0.90-1.11); Prothrombin Time 10.9 sec (9.9-11.9)
--- NOTE | 2021-06-26 13:07 | US ---
EXAMINATION TYPE: US abdomen complete DATE OF EXAM: 06/26/2021 COMPARISON: NONE CLINICAL HISTORY: 66-year-old female B18.1 CHRONIC VIRAL HEPATITIS B WITHOUT DELTA-AGEN. TECHNIQUE: Multiple sonographic images of the abdomen are obtained. FINDINGS: EXAM MEASUREMENTS: Liver Length: 13.2 cm Gallbladder Wall: 0.1 cm CBD: 0.4 cm Spleen: 9.9 cm Right Kidney: 10.1 x 4.6 x 4.3 cm Left Kidney: 9.9 x 4.8 x 5.3 cm Pancreas: Limited visualization of the pancreatic tail and head due to bowel gas shadowing. Visualiz ed body within normal limits. Liver: Slightly heterogeneous echotexture may be a technical basis. No focal lesions seen. Gallbladder: wnl Evidence for sonographic Sotelo's sign: neg CBD: wnl Spleen: wnl Right Kidney: No hydronephrosis or masses seen Left Kidney: No hydronephrosis or masses seen Upper IVC: wnl Abd Aorta: No AAA visualized IMPRESSION: 1. Slight heterogeneous appearance to the liver suggests nonspecific hepatocellular disease. No focal liver lesion identified. 2. No gallstones or biliary ductal dilatation.
[2021-06-27 16:09] LABS: Hepatitis B Virus DNA DETECTED (Not detected); Hepatitis B Virus DNA, Quant 206 IU/mL (<10); Log HBV IU/mL 2.31 (<1.00)
== END | disposition home or self-care (01) ==
LOC: RADUSWWP 06:57
PROVIDERS: ATTEND Internal Medicine Gastroenterology
DX: B18.1 Chronic viral hepatitis B without delta-agent (principal); R73.9 Hyperglycemia, unspecified
CPT/HCPCS: 76700; 80053; 82105; 83036; 85025; 85610; 87517

== ENCOUNTER → 2021-12-16 | Outpatient (CLI) | payer BC ==
[2021-12-16 14:35] LABS: ALT 20 U/L (8-44); AST 21 U/L (13-35); African American GFR (CKD) 105.6 (60.0-200.0); Albumin 4.4 g/dL (3.8-4.9); Alkaline Phosphatase 86 U/L (41-126); BUN/Creat Ratio 15.22 Ratio (12.00-20.00); Bilirubin, Conjugated <0.20 mg/dL (0.20-0.40); Blood Urea Nitrogen 10.7 mg/dL (9.0-27.0); Calcium 9.5 mg/dL (8.7-10.3); Carbon Dioxide 27.5 mmol/L (20.0-27.5); Chloride 106 mmol/L (96-109); Chol/HDL Ratio 3.13 Ratio; Globulin 2.2 g/dL (1.6-3.3); Glucose 95 mg/dL (70-110); LDL Cholesterol,Calculated 77.5 mg/dL (0.0-131.0); Non-African American GFR(CKD) 91.1 (60.0-200.0); Potassium 5.1 mmol/L (3.5-5.5); Sodium 142 mmol/L (135-145); Total Protein 6.5 g/dL (6.2-8.2); VLDL Calculation 19.84 mg/dL (5.00-40.00)
[2021-12-16 14:43] LABS: Basophils # (A) 0.06 X 10*3/uL (0.00-0.10); Eosinophils # (A) 0.21 X 10*3/uL (0.04-0.35); Eosinophils % (A) 3.5 %; HCT 42.2 % (37.2-46.3); HGB 13.6 g/dL (12.0-15.0); Immature Grans, Automated 0.3 %; Lymphocytes # (A) 1.62 X 10*3/uL (0.90-5.00); Lymphocytes % (A) 27.1 %; MCH 28.6 pg (27.0-32.0); MCHC 32.2 g/dL (32.0-37.0); MCV 88.7 fL (80.0-97.0); Mean Platelet Volume 10.5 fL (9.5-12.2); Monocytes # (A) 0.47 X 10*3/uL (0.20-1.00); Monocytes % (A) 7.9 %; NRBC Per 100 WBC 0 /100 WBCS (0.0-0.0); Neutrophils % (A) 60.2 %; Platelet Count 280 X 10*3/uL (140-440); RBC 4.76 X 10*6/uL (4.10-5.20); RDW 13.2 % (11.5-14.5); WBC 5.98 X 10*3/uL (4.50-10.00)
[2021-12-16 15:51] LABS: INR 1.01 (0.90-1.11); Prothrombin Time 11.1 sec (9.9-11.9)
[2021-12-17 09:38] LABS: Hepatitis B Virus DNA DETECTED (Not detected); Hepatitis B Virus DNA, Quant 220 IU/mL (<10); Log HBV IU/mL 2.34 (<1.00)
== END | disposition home or self-care (01) ==
LOC: LABWHC1 06:59
PROVIDERS: ATTEND Internal Medicine Interventional Cardiology
DX: E78.2 Mixed hyperlipidemia (principal); B18.1 Chronic viral hepatitis B without delta-agent
CPT/HCPCS: 36415; 80053; 80061; 82105; 82248; 85025; 85610; 87517

== ENCOUNTER → 2021-12-16 | Outpatient (CLI) | payer BC ==
--- NOTE | 2021-12-16 12:05 | US ---
EXAMINATION TYPE: US abdomen complete DATE OF EXAM: 12/16/2021 COMPARISON: CT CLINICAL HISTORY: B18.1 CHRONIC VIRAL HEPATITIS B. TECHNIQUE: Multiple sonographic images of the abdomen are obtained. FINDINGS: EXAM MEASUREMENTS: Liver Length: 11.6 cm Gallbladder Wall: cm CBD: Not measured Spleen: 10.9 cm Right Kidney: 10.8 x 4.5 x 4.8 cm Left Kidney: 10.6 cm EMPLOYMENT ATTORNEY NOTES: Pancreas: Tail obscured by overlying bowel gas Liver: wnl Gallbladder: Sonolucent. No obvious wall thickening is evident. Evidence for sonographic Sotelo's sign: no CBD: limited visualization, appears wnl Spleen: wnl Right Kidney: wnl Left Kidney: wnl Upper IVC: wnl Abd Aorta: Bifurcation obscured by overlying bowel gas IMPRESSION: 1. No acute ultrasound abnormality.
== END | disposition home or self-care (01) ==
LOC: RADUSWWP 06:55
PROVIDERS: ATTEND Internal Medicine Gastroenterology
DX: B18.1 Chronic viral hepatitis B without delta-agent (principal)
CPT/HCPCS: 76700

== ENCOUNTER → 2022-01-09 | Outpatient (CLI) | payer BC ==
--- NOTE | 2022-01-09 18:39 | MM ---
Reason for Exam: Screening (asymptomatic). Last screening mammogram was performed 12 month(s) ago. Patient History: Menarche at age 14. Patient has no children. Left ovary removed at age 49. Right ovary removed at age 49. Hysterectomy at age 49. Postmenopausal. Estrogen for 2 years from age 49 until age 51. Hormonal Contraceptives for 5 years from age 23 until age 28. 1987, Bilateral Reduction. Maternal aunt had breast cancer, age 70. Risk Values: Gauri 5 year model risk: 1.8%. NCI Lifetime model risk: 7.2%. Prior Study Comparison: 10/27/2018 Bilateral Screening Mammogram, [facility]. 01/08/2020 Bilateral Screening Mammogram, [facility]. 01/08/2021 Bilateral Screening Mammogram, [facility]. Tissue Density: There are scattered fibroglandular densities. Findings: Analyzed By CAD. Postreduction mammoplasty changes are present on both sides. A few scattered benign oil cyst calcifications noted. A band of density lateral right CC view is unchanged back to 2019. No significant change from prior exams. Overall Assessment: Benign, BI-RAD 2 Management: Screening Mammogram of both breasts in 1 year. 1. Patient should continue monthly self breast exams. 2. A clinical breast exam by your physician is recommended on an annual basis. 3. This exam should not preclude additional follow-up of suspicious palpable abnormalities. Electronically signed and approved by: Humberto Dunn M.D. Radiologist
== END | disposition home or self-care (01) ==
LOC: RADMAMWWP 07:01
PROVIDERS: ATTEND Internal Medicine
DX: Z12.31 Encounter for screening mammogram for malignant neoplasm of breast (principal); Z78.0 Asymptomatic menopausal state; Z80.3 Family history of malignant neoplasm of breast; Z90.721 Acquired absence of ovaries, unilateral
CPT/HCPCS: 77063; 77067

== ENCOUNTER 2022-06-17 08:14 | Emergency (ER) | payer MEDICARE, OTHER ==
[2022-06-17 08:18] VITALS: BP 167/90; PULSE 66; RESP 18; TEMP 97.9
--- NOTE | 2022-06-17 08:28 | ED ---
Head Injury HPI - General Chief complaint: Head Injury Stated complaint: hit head Time Seen by Provider: 06/17/22 08:19 Source: patient, RN notes reviewed Mode of arrival: ambulatory Limitations: no limitations - History of Present Illness Initial comments: 67-year-old female presents emergency Department with chief complaint of head injury. Patient states that she was trying to fix some stuff for her horse states that she caught her forehead on the hot wire fence and states that she fell backwards striking her in the arm. She had no loss conscious. Patient states she just wants to be checked out. She hasn't went of head neck back pain no blurred vision no focal weakness. She states she was on Plavix but is not taking Plavix in over 1 year. She does take a baby aspirin. Patient offers no complaints. - Related Data Home Medications Medication Instructions Recorded Confirmed Atorvastatin [Lipitor] 20 mg PO DAILY 12/22/13 05/26/21 Clopidogrel Bisulfate [Clopidogrel] 75 mg PO DAILY 12/22/13 05/26/21 Calcium Carbonate/Vitamin D3 1 tab PO DAILY 05/26/21 05/26/21 [Calcium 600 mg-Vit D3 10 mcg (400 Unit)] Multivitamins, Thera [Multivitamin 1 tab PO DAILY 05/26/21 05/26/21 (formulary)] Previous Rx's Medication Instructions Recorded Aspirin 325 mg PO DAILY tab 05/28/21 Allergies/Adverse reactions: Allergies Allergy/AdvReac Type Severity Reaction Status Date / Time cephalexin monohydrate Allergy Rash/Hives Verified 06/17/22 08:19 [From Keflex] morphine Allergy Itching Verified 06/17/22 08:19 Sulfa (Sulfonamide Allergy Abdominal Verified 06/17/22 08:19 Antibiotics) Pain STEROIDS AdvReac Unknown Uncoded 06/17/22 08:19 Review of Systems ROS Statement: Those systems with pertinent positive or pertinent negative responses have been documented in the HPI. ROS Other: All systems not noted in ROS Statement are negative. Past Medical History Past Medical History: CVA/TIA Additional Past Medical History / Comment(s): TIA IN AUGUST 2012 History of Any Multi-Drug Resistant Organisms: None Reported Past Surgical History: Breast Surgery, Hysterectomy, Orthopedic Surgery, Tubal Ligation Additional Past Surgical History / Comment(s): ORIF RIGHT ANKLE. BREAST REDUCTION. Past Anesthesia/Blood Transfusion Reactions: No Reported Reaction Past Psychological History: No Psychological Hx Reported Smoking Status: Never smoker Past Alcohol Use History: Occasional Past Drug Use History: None Reported - Past Family History Mother Family Medical History: Congestive Heart Failure (CHF) General Exam Limitations: no limitations General appearance: alert, in no apparent distress Head exam: Present: atraumatic, normocephalic, normal inspection Eye exam: Present: normal appearance, PERRL, EOMI. Absent: scleral icterus, conjunctival injection, periorbital swelling ENT exam: Present: normal exam, normal oropharynx, mucous membranes moist Neck exam: Present: normal inspection, full ROM. Absent: tenderness, meningismus, lymphadenopathy Respiratory exam: Present: normal lung sounds bilaterally. Absent: respiratory distress, wheezes, rales, rhonchi, stridor Cardiovascular Exam: Present: regular rate, normal rhythm, normal heart sounds. Absent: systolic murmur, diastolic murmur, rubs, gallop, clicks Neurological exam: Present: alert, oriented X3, CN II-XII intact, reflexes normal. Absent: motor sensory deficit Skin exam: Present: warm, dry, intact, normal color. Absent: rash Course Vital Signs 06/17/22 08:16 Temperature 97.9 F Pulse Rate 66 Respiratory 18 Rate Blood Pressure 167/90 O2 Sat by Pulse 99 Oximetry Medical Decision Making - Medical Decision Making Was pt. sent in by a medical professional or institution (JOSUÉ Cuellar, HEALTH CLUB MANAGER, urgent care, hospital, or penitentiary...) When possible be specific @ -No Did you speak to anyone other than the patient for history (EMS, parent, family, police, friend...)? What history was obtained from this source @ -No Did you review nursing and triage notes (agree or disagree)? Why? @ -I reviewed and agree with nursing and triage notes Were old charts reviewed (outside hosp., previous admission, EMS record, old EKG, old radiological studies, urgent care reports/EKG's, penitentiary records)? Report findings @ -No old charts were reviewed Differential Diagnosis (chest pain, altered mental status, abdominal pain women, abdominal pain men, vaginal bleeding, weakness, fever, dyspnea, syncope, headache, dizziness, GI bleed, back pain, seizure, CVA, palpatations, mental health, musculoskeletal)? @ -Head injury, intracranial hemorrhage, skull fracture EKG interpreted by me (3pts min.). @ -As above X-rays interpreted by me (1pt min.). @ -None done CT interpreted by me (1pt min.). @ -CT her brain does not reveal to current hemorrhage, mass effect U/S interpreted by me (1pt. min.). @ -None done What testing was considered but not performed or refused? (CT, X-rays, U/S, labs)? Why? @ -None What meds were considered but not given or refused? Why? @ -None Did you discuss the management of the patient with other professionals (arun coombs i.e. , PA, HEALTH CLUB MANAGER, lab, RT, psych nurse, mental health social worker, elect equip maint eng, teacher, sales promotion officer, manager rn case)? Give summary @ -No Was smoking cessation discussed for >3mins.? @ -No Was critical care preformed (if so, how long)? @ -No Were there social determinants of health that impacted care today? How? (Homelessness, low income, unemployed, alcoholism, drug addiction, transportation, low edu. Level, literacy, decrease access to med. care, shelter, rehab)? @ -No Was there de-escalation of care discussed even if they declined (Discuss DNR or withdrawal of care, Hospice)? DNR status @ -No What co-morbidities impacted this encounter? (DM, HTN, Smoking, COPD, CAD, Cancer, CVA, ARF, Chemo, Hep., AIDS, mental health diagnosis, sleep apnea, morbid obesity)? @ -None Was patient admitted / discharged? Hospital course, mention meds given and route, prescriptions, significant lab abnormalities, going to OR and other pertinent info. @ -Discharge CT was negative for acute intracranial hemorrhage patient's positive and tach with no acute symptoms. Undiagnosed new problem with uncertain prognosis? @ -No Drug Therapy requiring intensive monitoring for toxicity (Heparin, Nitro, Insulin, Cardizem)? @ -No Were any procedures done? @ -No Diagnosis/symptom? @ -Head contusion Acute, or Chronic, or Acute on Chronic? @ -Acute Uncomplicated (without systemic symptoms) or Complicated (systemic symptoms)? @ -Uncomplicated Side effects of treatment? @ -No Exacerbation, Progression, or Severe Exacerbation? @ -No Poses a threat to life or bodily function? How? (Chest pain, [place], ME, pneumonia, PE, COPD, DKA, ARF, appy, cholecystitis, CVA, Diverticulitis, Homicidal, Suicidal, threat to staff... and all critical care pts) @ -No Disposition Clinical Impression: Head contusion Disposition: HOME SELF-CARE Condition: Stable Instructions (If sedation given, give patient instructions): Head Injury (ED) Additional Instructions: Please return to the Emergency Department if symptoms worsen or any other concerns. Is patient prescribed a controlled substance at d/c from ED?: No Referrals: Lilly Hdez MD [Primary Care Provider] - 1-2 days Time of Disposition: 09:00
--- NOTE | 2022-06-17 08:43 | CT ---
EXAMINATION TYPE: CT brain wo con DATE OF EXAM: 06/17/2022 HISTORY: Pt hit front of head with electric fence, which then caused her to fall back and hit back of head. CT DLP: 1131.4 mGycm. Automated Exposure Control for Dose Reduction was Utilized. TECHNIQUE: CT scan of the head is performed without contrast. COMPARISON: CT brain May 26, 2021. FINDINGS: There is no acute intracranial hemorrhage or midline shift identified. There is mild diff use ventricular and sulcal prominence redemonstrated. Franklin-white matter differentiation is preserved. The calvarium is intact. The globes are intact and the visualized sinuses are clear. IMPRESSION: No acute intracranial hemorrhage or midline shift. No significant change from most recen t prior CT.
== END 2022-06-17 09:05 | disposition home or self-care (01) ==
LOC: EC 08:14
DX: S00.93XA Contusion of unspecified part of head, initial encounter (principal); Z88.1 Allergy status to other antibiotic agents; Z88.2 Allergy status to sulfonamides; Z88.8 Allergy status to other drugs, medicaments and biological substances; W01.10XA Fall on same level from slipping, tripping and stumbling with subsequent striking against unspecified object, initial encounter
CPT/HCPCS: 70450; 99283

== ENCOUNTER → 2022-06-30 | Outpatient (CLI) | payer MEDICARE, OTHER | END | disposition home or self-care (01) | LOC: LABWHC1 08:40 | PROVIDERS: ATTEND Internal Medicine | DX: M79.10 Myalgia, unspecified site (principal) | CPT/HCPCS: 36415; 82550 ==

== ENCOUNTER 2022-07-13 06:38 | Emergency (ER) | payer MEDICARE, OTHER ==
[2022-07-13 06:47] VITALS: PULSE 68; RESP 16; TEMP 97.7
--- NOTE | 2022-07-13 07:25 | ED ---
Back Pain HPI - General Chief Complaint: Back Pain/Injury Stated Complaint: Cracked rib Time Seen by Provider: 07/13/22 06:48 Source: patient, RN notes reviewed Mode of arrival: ambulatory Limitations: no limitations - History of Present Illness Initial Comments: This is a 67-year-old female who presents to the emergency department for right sided rib cage pain. States that earlier in the week she was leaning over a grain bin, and heard a pop to the right rib cage. She has since continued to have pain to this area. When doing yard work yesterday, she states that the pain became exacerbated. She is concerned that she may have broken a rib or punctured something. She is not taking anything for her pain. This does cause pain with inhalation. Denies any fevers, chills, sore throat, cough, dyspnea, chest pain, palpitations, abdominal pain, nausea, vomiting, diarrhea, or headaches. - Related Data Home Medications Medication Instructions Recorded Confirmed Atorvastatin [Lipitor] 20 mg PO DAILY 12/22/13 05/26/21 Clopidogrel Bisulfate [Clopidogrel] 75 mg PO DAILY 12/22/13 05/26/21 Calcium Carbonate/Vitamin D3 1 tab PO DAILY 05/26/21 05/26/21 [Calcium 600 mg-Vit D3 10 mcg (400 Unit)] Multivitamins, Thera [Multivitamin 1 tab PO DAILY 05/26/21 05/26/21 (formulary)] Previous Rx's Medication Instructions Recorded Aspirin 325 mg PO DAILY tab 05/28/21 Allergies Allergy/AdvReac Type Severity Reaction Status Date / Time cephalexin monohydrate Allergy Rash/Hives Verified 07/13/22 06:43 [From Keflex] morphine Allergy Itching Verified 07/13/22 06:43 Sulfa (Sulfonamide Allergy Abdominal Verified 07/13/22 06:43 Antibiotics) Pain STEROIDS AdvReac Unknown Uncoded 07/13/22 06:43 Review of Systems ROS Statement: Those systems with pertinent positive or pertinent negative responses have been documented in the HPI. ROS Other: All systems not noted in ROS Statement are negative. Past Medical History Past Medical History: CVA/TIA, Hyperlipidemia Additional Past Medical History / Comment(s): TIA IN AUGUST 2012 History of Any Multi-Drug Resistant Organisms: None Reported Past Surgical History: Breast Surgery, Hysterectomy, Orthopedic Surgery, Tubal Ligation Additional Past Surgical History / Comment(s): ORIF RIGHT ANKLE. BREAST REDUCTION. Past Anesthesia/Blood Transfusion Reactions: No Reported Reaction Past Psychological History: No Psychological Hx Reported Smoking Status: Never smoker Past Alcohol Use History: Occasional Past Drug Use History: None Reported - Past Family History Mother Family Medical History: Congestive Heart Failure (CHF) General Exam Limitations: no limitations General appearance: alert, in no apparent distress Head exam: Present: atraumatic, normocephalic, normal inspection Respiratory exam: Present: normal lung sounds bilaterally, chest wall tenderness (Over the right lower rib cage). Absent: respiratory distress, wheezes, rales, rhonchi, stridor Cardiovascular Exam: Present: regular rate, normal rhythm, normal heart sounds. Absent: systolic murmur, diastolic murmur, rubs, gallop, clicks Neurological exam: Present: alert, oriented X3, CN II-XII intact Psychiatric exam: Present: normal affect, normal mood Skin exam: Present: warm, dry, intact, normal color. Absent: rash Course Vital Signs 07/13/22 06:43 Temperature 97.7 F Pulse Rate 68 Respiratory 16 Rate Blood Pressure 154/82 O2 Sat by Pulse 99 Oximetry Medical Decision Making - Medical Decision Making This is a 67-year-old female who presents to the emergency department for right sided rib pain. Was pt. sent in by a medical professional or institution? @ -No Did you speak to anyone other than the patient for history? @ -No Did you review nursing and triage notes? @ -Yes, and I agree, it is accurate with regards to the patient's symptoms. Were old charts reviewed? @ -No Differential Diagnosis? @ -Differential Rib Pain: Fracture, contusion, organ injury, this is not meant to be an all-inclusive list. EKG interpreted by me (3pts min.)? @ -Not obtained X-rays interpreted by me (1pt min.)? @ -Not obtained CT interpreted by me (1pt min.)? @ -Computed tomography scan of the chest and abdomen obtained. My interpretation identifies no evidence of any acute rib fractures. U/S interpreted by me (1pt. min.)? @ -Not obtained What testing was considered but not performed? (CT, X-rays, U/S, labs)? Why? @ -None What meds were considered but not given? Why? @ -None Did you discuss the management of the patient with other professionals? @ -No Did you reconcile home meds? @ -No Was smoking cessation discussed for >3mins.? @ -No Was critical care preformed (if so, how long)? @ -No Were there social determinants of health that impacted care today? How? (Homelessness, low income, unemployed, alcoholism, drug addiction, transportation, low edu. Level, literacy, decrease access to med. care, detention, rehab)? @ -No Was there de-escalation of care discussed even if they declined? (Discuss DNR or withdrawal of care, Hospice)? @ -No What co-morbidities impacted this encounter? (DM, HTN, Smoking, COPD, CAD, Cancer, CVA, Hep., AIDS, mental health diagnosis, sleep apnea, morbid obesity)? @ -None Was patient admitted / discharged? @ -Discharged. Computed tomography scan of the chest and abdomen obtained revealing no evidence of a rib fracture or other acute findings. Results reviewed with the patient. Advised that this is most likely a rib contusion. Advised ibuprofen and Tylenol as needed for pain relief. Also discussed [id number] lidocaine cream or patches for additional relief. She can alternate with ice and heat, using whichever one is more beneficial. She is also instructed to take deep breaths several times each day to reduce the risk of developing a secondary pneumonia. Undiagnosed new problem with uncertain prognosis? @ -None Drug Therapy requiring intensive monitoring for toxicity (Heparin, Nitro, Insulin, Cardizem)? @ -None Were any procedures done? @ -None Diagnosis/symptom? @ -Right rib contusion Acute, or Chronic, or Acute on Chronic? @ -Acute Uncomplicated (without systemic symptoms) or Complicated (systemic symptoms)? @ -Uncomplicated Side effects of treatment? @ -None Exacerbation, Progression, or Severe Exacerbation] @ -Not applicable Poses a threat to life or bodily function? @ -No Return precautions reviewed in depth, the patient is instructed to return to the emergency department with any new, worsening, or concerning symptoms. Patient verbalized understanding. This case was discussed in detail with the attending ED physician, Dr. Nguyen. Presentation, findings, and treatment plan discussed in detail as well. - Radiology Data Radiology results: report reviewed, image reviewed Disposition Clinical Impression: Contusion of rib on right side Disposition: HOME SELF-CARE Instructions (If sedation given, give patient instructions): Rib Contusion (ED) Additional Instructions: Return to the emergency department with any new, worsening, or concerning symptoms. Alternate with ibuprofen and Tylenol as needed for pain relief. You can also use [id number] lidocaine cream or patches for additional relief. Follow up with your primary care provider in 1-2 days. Is patient prescribed a controlled substance at d/c from ED?: No Referrals: Lilly Hdez MD [Primary Care Provider] - 1-2 days
--- NOTE | 2022-07-13 07:34 | CT ---
EXAMINATION TYPE: CT chest abdomen wo con DATE OF EXAM: 07/13/2022 COMPARISON: NONE HISTORY: right lower and upper abdominal pain after fall injury CT DLP: 541.8 mGycm. Automated Exposure Control for Dose Reduction was Utilized. TECHNIQUE: CT scan of the thorax and abdomen are performed without IV contrast. FINDINGS: LUNGS: The lungs are grossly clear, there is no concerning parenchymal mass or nodule identified. T here is no pleural effusion or pneumothorax seen. The tracheobronchial tree is patent. MEDIASTINUM: Lack of IV contrast is noted to limit evaluation for mediastinal and especially hilar ad enopathy. There are no definitive greater than 1 cm mediastinal lymph nodes. Small to tiny pericardia l effusion is seen. No cardiomegaly. LIVER/GB: No significant abnormality is appreciated. PANCREAS: No significant abnormality is seen. SPLEEN: No significant abnormality is seen. ADRENALS: No significant abnormality is seen. KIDNEYS: No significant abnormality is seen. BOWEL: No significant abnormality is seen. LYMPH NODES: No greater than 1cm abdominal lymph nodes are appreciated. OSSEOUS STRUCTURES: No significant abnormality is seen. OTHER: No significant additional abnormality is seen. IMPRESSION: Slightly suboptimal without IV contrast. No acute posttraumatic finding identified.
[2022-07-13 08:16] VITALS: BP 143/87
== END 2022-07-13 08:16 | disposition home or self-care (01) ==
LOC: EC 06:38
DX: S20.20XA Contusion of thorax, unspecified, initial encounter (principal); E78.5 Hyperlipidemia, unspecified; Z79.899 Other long term (current) drug therapy; Z88.1 Allergy status to other antibiotic agents; Z88.2 Allergy status to sulfonamides; Z88.6 Allergy status to analgesic agent; Z88.8 Allergy status to other drugs, medicaments and biological substances; Z86.73 Personal history of transient ischemic attack (TIA), and cerebral infarction without residual deficits; X50.1XXA Overexertion from prolonged static or awkward postures, initial encounter
CPT/HCPCS: 71250; 74150; 99283

== ENCOUNTER → 2022-07-24 | Outpatient (CLI) | payer MEDICARE, OTHER ==
--- NOTE | 2022-07-24 08:03 | US ---
EXAMINATION TYPE: US abdomen complete DATE OF EXAM: 07/24/2022 COMPARISON: CT & US CLINICAL INDICATION: Female, 67 years old with history of CHRONIC HEP B; Chronic Hep B TECHNIQUE: Multiple sonographic images of the abdomen are obtained. FINDINGS: EXAM MEASUREMENTS: Liver Length: 15.1 cm Gallbladder Wall: 0.1 cm CBD: 0.3 cm Spleen: 9.4 cm Right Kidney: 10.7 x 4.4 x 4.2 cm Left Kidney: 9.9 x 5.5 x 4.8 cm Pancreas: wnl, tail obscured by overlying bowel gas Liver: Visualized portions appeared, no masses visualized. No cystic structures. No dilated ducts. Gallbladder: wnl Evidence for sonographic Sotelo's sign: No CBD: wnl Spleen: wnl Right Kidney: wnl, lower pole gassed out Left Kidney: wnl Upper IVC: wnl Abd Aorta: wnl The liver is homogenous. The intrahepatic portion of the IVC and proximal abdominal aorta are within normal limits. There is no evidence of cholelithiasis. Common bile duct is unremarkable. The visu alized portions of the pancreas are homogenous. The spleen is unremarkable. Kidneys are symmetric a nd free of hydronephrosis. No renal lesions are seen. IMPRESSION: 1. No suspicious hepatic masses. 2. No acute process.
[2022-07-24 11:03] LABS: ALT 28 U/L (8-44); AST 27 U/L (13-35); Albumin 4.7 d/dL (3.8-4.9); Albumin/Globulin Ratio 1.88 Ratio (1.60-3.17); Alkaline Phosphatase 102 U/L (41-126); BUN/Creat Ratio 15.57 Ratio (12.00-20.00); Bilirubin, Conjugated <0.20 mg/dL (0.20-0.40); Bilirubin,Unconjugated >0.30 mg/dL (0.20-1.00); Blood Urea Nitrogen 10.9 mg/dL (9.0-27.0); Calcium 9.9 mg/dL (8.7-10.3); Carbon Dioxide 29.8 mmol/L (21.6-31.8); Chloride 105 mmol/L (96-109); Globulin 2.5 d/dL (1.6-3.3); Glucose 100 mg/dL (70-110); Potassium 4.6 mmol/L (3.5-5.5); Sodium 145 mmol/L (135-145); Total Bilirubin 0.5 mg/dL (0.3-1.2); Total Protein 7.2 d/dL (6.2-8.2)
[2022-07-24 11:44] LABS: Basophils # (A) 0.05 X 10*3/uL (0.00-0.10); Basophils % (A) 0.7 %; Eosinophils # (A) 0.31 X 10*3/uL (0.04-0.35); HCT 45.3 % (37.2-46.3); HGB 14.3 d/dL (12.0-15.0); Lymphocytes # (A) 2.09 X 10*3/uL (0.90-5.00); Lymphocytes % (A) 27.2 %; MCH 27.9 pg (27.0-32.0); MCHC 31.6 d/dL (32.0-37.0); MCV 88.3 FL (80.0-97.0); Mean Platelet Volume 10.2 FL (9.5-12.2); Monocytes # (A) 0.57 X 10*3/uL (0.20-1.00); Monocytes % (A) 7.4 %; NRBC Per 100 WBC 0 X 10*3/uL (0.00-0.01); Neutrophils # (A) 4.63 X 10*3/uL (1.80-7.70); Neutrophils % (A) 60.3 %; Platelet Count 317 X 10*3/uL (140-440); RBC 5.13 X 10*6/uL (4.10-5.20); RDW 13.1 % (11.5-14.5); WBC 7.68 X 10*3/uL (4.50-10.00)
[2022-07-24 13:46] LABS: INR 0.93 sec (0.93-1.11); Prothrombin Time 10.5 sec (9.9-11.9)
== END | disposition home or self-care (01) ==
LOC: RADUSWWP 07:03
PROVIDERS: ATTEND Internal Medicine Gastroenterology
DX: B18.1 Chronic viral hepatitis B without delta-agent (principal)
CPT/HCPCS: 36415; 76700; 80048; 80076; 82105; 85025; 85610; 87517

== ENCOUNTER → 2022-12-31 | Outpatient (CLI) | payer MEDICARE, OTHER ==
--- NOTE | 2022-12-31 07:56 | US ---
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 TECHNIQUE: Multiple sonographic images of the abdomen are obtained. FINDINGS: EXAM MEASUREMENTS: Liver Length: 13.8 cm Gallbladder Wall: 0.25 cm CBD: 0.43 cm Spleen: 9.7 cm Right Kidney: 10.4 x 5.6 x 4.9 cm Left Kidney: 9.7 x 5.6 x 4.7 cm LAUNCH ENGINEER NOTES: Exam is limited due to gas. Pancreas: Limited visibility. Liver: Appears coarse and heterogeneous with increased echogenicity. Increased attenuation. Gallbladder: Hyperechoic area seen within the gallbladder, only able to visualize when patient tur dmitry LLD: 0.5 x 0.3 x 0.4 cm. Evidence for sonographic Sotelo's sign: No CBD: Portions seen appear wnl Spleen: Appears wnl Right Kidney: No hydronephrosis or masses seen Left Kidney: No hydronephrosis or masses seen Upper IVC: Appears wnl Abd Aorta: Iliacs were obscured. IMPRESSION: 1. Mild fatty infiltration of the liver.
== END | disposition home or self-care (01) ==
LOC: RADUSWWP 06:54
PROVIDERS: ATTEND Internal Medicine Gastroenterology
DX: B18.1 Chronic viral hepatitis B without delta-agent (principal); K76.0 Fatty (change of) liver, not elsewhere classified
CPT/HCPCS: 76700

== ENCOUNTER → 2022-12-31 | Outpatient (CLI) | payer MEDICARE, OTHER ==
[2022-12-31 16:11] LABS: Basophils # (A) 0.07 X 10*3/uL (0.00-0.10); Eosinophils # (A) 0.21 X 10*3/uL (0.04-0.35); Eosinophils % (A) 3.1 %; HCT 44.4 % (37.2-46.3); HGB 13.8 g/dL (12.0-15.0); Lymphocytes # (A) 1.84 X 10*3/uL (0.90-5.00); Lymphocytes % (A) 27.4 %; MCH 27.2 pg (27.0-32.0); MCHC 31.1 g/dL (32.0-37.0); MCV 87.6 FL (80.0-97.0); Mean Platelet Volume 9.6 FL (9.5-12.2); Monocytes # (A) 0.54 X 10*3/uL (0.20-1.00); NRBC Per 100 WBC 0 X 10*3/uL (0.00-0.01); Neutrophils # (A) 4.03 X 10*3/uL (1.80-7.70); Neutrophils % (A) 60.2 %; Platelet Count 322 X 10*3/uL (140-440); RBC 5.07 X 10*6/uL (4.10-5.20); RDW 12.7 % (11.5-14.5); WBC 6.71 X 10*3/uL (4.50-10.00)
[2022-12-31 16:38] LABS: ALT 18 U/L (8-44); AST 23 U/L (13-35); Albumin 4.4 g/dL (3.8-4.9); Albumin/Globulin Ratio 1.76 Ratio (1.60-3.17); Alkaline Phosphatase 101 U/L (41-126); BUN/Creat Ratio 17.43 Ratio (12.00-20.00); Blood Urea Nitrogen 12.2 mg/dL (9.0-27.0); Calcium 9.7 mg/dL (8.7-10.3); Chloride 105 mmol/L (96-109); Globulin 2.5 g/dL (1.6-3.3); Glucose 101 mg/dL (70-110); Potassium 4.4 mmol/L (3.5-5.5); Sodium 142 mmol/L (135-145); Total Bilirubin 0.5 mg/dL (0.3-1.2); Total Protein 6.9 g/dL (6.2-8.2)
[2023-01-01 02:27] LABS: Chol/HDL Ratio 4.03 Ratio; LDL Cholesterol,Calculated 134.2 mg/dL (0.0-131.0)
[2023-01-01 12:39] LABS: Hepatitis B Virus DNA DETECTED (Not detected); Hepatitis B Virus DNA, Quant 223 IU/mL (<10); Log HBV IU/mL 2.35 (<1.00)
== END | disposition home or self-care (01) ==
LOC: LABWHC1 07:47
PROVIDERS: ATTEND Internal Medicine Interventional Cardiology
DX: I10 Essential (primary) hypertension (principal); E78.2 Mixed hyperlipidemia; B18.1 Chronic viral hepatitis B without delta-agent
CPT/HCPCS: 36415; 80053; 80061; 82105; 85025; 87517

== ENCOUNTER → 2023-01-13 | Outpatient (CLI) | payer MEDICARE, OTHER ==
--- NOTE | 2023-01-13 11:38 | BD ---
EXAMINATION TYPE: Axial Bone Density DATE OF EXAM: 01/13/2023 CLINICAL HISTORY: 67 years old Female. ICD-10 CODE: MENOPAUSAL AND PERIMENOPAUSAL N95.8 Height: 62in Weight: 167lb FRAX RISK QUESTIONS: Family History (Parent hip fracture): yes History of Fracture in Adulthood: yes Secondary Osteoporosis: RISK FACTORS HISTORY OF: Active: yes Postmenopausal woman: yes Take estrogen and/or progesterone medications: yes, none current How lon-3 years MEDICATIONS: Additional Medications: cholesterol med, calcium with vitamin d Additional History: Hep B, ankle fx EXAM MEASUREMENTS: Bone mineral densitometry was performed using the [employer] System. Bone mineral density as measured about the Lumbar spine is: ----- L1-L4(G/cm2): 1.167 T Score Values are as follows: ----- L1: -1.5 ----- L2: -0.7 ----- L3: 0.6 ----- L4: 0.6 ----- L1-L4: -0.1 Z Score Values are as follows: ----- L1: -0.2 ----- L2: 0.5 ----- L3: 1.9 ----- L4: 1.8 ----- L1-L4: 1.1 Bone mineral density has: Decreased -0.5% since study of: 01-08-21 Bone mineral density about the R hip (g/cm2): 0.911 Bone mineral density about the L hip (g/cm2): 0.879 T Score values are as follows: -----R Neck: -1.8 -----L Neck: -1.8 -----R Total: -0.8 -----L Total: -1.0 Z Score values are as follows: -----R Neck: -0.6 -----L Neck: -0.6 -----R Total: 0.2 -----L Total: 0.0 Bone mineral density has: Decreased -1.3% since study of: 01-08-21 FRAX%s: The graph provided illustrates a 28.9% chance for a major osteoporotic fx and a 2.7% chance f or the hips probability for fx in 10 years time. IMPRESSION: Osteopenia (T Score between -2.5 and -1). There is slightly increased risk of fracture and the patient may be considered for treatment. Re-Screen 2-5 years. NOTE: T-SCORE=SD OF THE YOUNG ADULT MEAN.
--- NOTE | 2023-01-14 10:39 | MM ---
Reason for Exam: Screening (asymptomatic). Last screening mammogram was performed 12 month(s) ago. Patient History: Menarche at age 14. Patient has no children. Left ovary removed at age 49. Right ovary removed at age 49. Hysterectomy at age 49. Postmenopausal. Estrogen for 2 years from age 49 until age 51. Hormonal Contraceptives for 5 years from age 23 until age 28. 1987, Bilateral Reduction. Maternal aunt had breast cancer, age 70. Risk Values: Gauri 5 year model risk: 1.8%. NCI Lifetime model risk: 6.9%. Prior Study Comparison: 01/08/2020 Bilateral Screening Mammogram, [facility]. 01/08/2021 Bilateral Screening Mammogram, [facility]. 01/09/2022 Bilateral MG 3D screening mammo w/cad, [facility]. Tissue Density: The breast tissue is heterogeneously dense. This may lower the sensitivity of mammography. Findings: Analyzed By CAD. There is no suspicious group of microcalcifications or new suspicious mass in either breast. Overall Assessment: Benign, BI-RAD 2 Management: Screening Mammogram of both breasts in 1 year. . Patient should continue monthly self-breast exams. A clinical breast exam by your physician is recommended on an annual basis. This exam should not preclude additional follow-up of suspicious palpable abnormalities. Note on Gauri scores and lifetime risk: 1. A Gauri score greater than 3% is considered moderate risk. If this is the case, consider specialist referral to assess eligibility for a risk reducing agent. 2. If overall lifetime risk for the development of breast cancer is 20% or higher, the patient may qualify for future screening with alternating mammogram and breast MRI. Electronically signed and approved by: Ramsey Mazariegos M.D. Radiologis
== END | disposition home or self-care (01) ==
LOC: RADMAMWWP 06:55
PROVIDERS: ATTEND Internal Medicine
DX: Z12.31 Encounter for screening mammogram for malignant neoplasm of breast (principal); N95.8 Other specified menopausal and perimenopausal disorders; M85.89 Other specified disorders of bone density and structure, multiple sites; Z80.3 Family history of malignant neoplasm of breast; Z78.0 Asymptomatic menopausal state
CPT/HCPCS: 77063; 77067; 77080

== ENCOUNTER → 2023-04-05 | Outpatient (CLI) | payer MEDICARE, OTHER ==
[2023-04-05 11:10] LABS: ALT 19 U/L (8-44); AST 22 U/L (13-35); Chol/HDL Ratio 4.36 Ratio; LDL Cholesterol,Calculated 133.5 mg/dL (0.0-131.0)
== END | disposition home or self-care (01) ==
LOC: LABWHC1 07:14
PROVIDERS: ATTEND Internal Medicine Interventional Cardiology
DX: E78.2 Mixed hyperlipidemia (principal)
CPT/HCPCS: 36415; 80061; 84450; 84460

== ENCOUNTER → 2023-06-11 | Outpatient (CLI) | payer MEDICARE, OTHER ==
[2023-06-11 10:55] LABS: ALT 25 U/L (8-44); AST 27 U/L (13-35); Albumin 4.5 g/dL (3.8-4.9); Albumin/Globulin Ratio 1.73 Ratio (1.60-3.17); Alkaline Phosphatase 93 U/L (41-126); BUN/Creat Ratio 19.86 Ratio (12.00-20.00); Blood Urea Nitrogen 13.9 mg/dL (9.0-27.0); Calcium 9.6 mg/dL (8.7-10.3); Carbon Dioxide 27.9 mmol/L (21.6-31.8); Chloride 106 mmol/L (96-109); Globulin 2.6 g/dL (1.6-3.3); Glucose 93 mg/dL (70-110); LDL Cholesterol,Calculated 62.5 mg/dL (0.0-131.0); Potassium 4.6 mmol/L (3.5-5.5); Sodium 143 mmol/L (135-145); Total Bilirubin 0.4 mg/dL (0.3-1.2); Total Protein 7.1 g/dL (6.2-8.2); VLDL Calculation 18.44 mg/dL (5.00-40.00)
== END | disposition home or self-care (01) ==
LOC: LABWHC1 07:07
PROVIDERS: ATTEND Internal Medicine Interventional Cardiology
DX: E78.2 Mixed hyperlipidemia (principal)
CPT/HCPCS: 36415; 80053; 80061

== ENCOUNTER → 2023-07-13 | Outpatient (CLI) | payer MEDICARE, OTHER ==
[2023-07-13 10:45] LABS: Basophils # (A) 0.05 X 10*3/uL (0.00-0.10); Basophils % (A) 0.7 %; Eosinophils # (A) 0.29 X 10*3/uL (0.04-0.35); Eosinophils % (A) 3.9 %; HCT 44.5 % (37.2-46.3); HGB 14.2 g/dL (12.0-15.0); Lymphocytes # (A) 1.79 X 10*3/uL (0.90-5.00); Lymphocytes % (A) 24.3 %; MCH 28.6 pg (27.0-32.0); MCHC 31.9 g/dL (32.0-37.0); MCV 89.7 FL (80.0-97.0); Mean Platelet Volume 10.2 FL (9.5-12.2); Monocytes # (A) 0.55 X 10*3/uL (0.20-1.00); Monocytes % (A) 7.5 %; NRBC Per 100 WBC 0 X 10*3/uL (0.00-0.01); Neutrophils # (A) 4.67 X 10*3/uL (1.80-7.70); Neutrophils % (A) 63.3 %; Platelet Count 287 X 10*3/uL (140-440); RBC 4.96 X 10*6/uL (4.10-5.20); RDW 12.8 % (11.5-14.5); WBC 7.37 X 10*3/uL (4.50-10.00)
[2023-07-13 11:38] LABS: ALT 24 U/L (8-44); AST 28 U/L (13-35); Albumin 4.5 g/dL (3.8-4.9); Albumin/Globulin Ratio 1.88 Ratio (1.60-3.17); Alkaline Phosphatase 98 U/L (41-126); BUN/Creat Ratio 18.71 Ratio (12.00-20.00); Blood Urea Nitrogen 13.1 mg/dL (9.0-27.0); Calcium 10.1 mg/dL (8.7-10.3); Carbon Dioxide 27.7 mmol/L (21.6-31.8); Chloride 105 mmol/L (96-109); Globulin 2.4 g/dL (1.6-3.3); Glucose 105 mg/dL (70-110); Potassium 4.7 mmol/L (3.5-5.5); Sodium 142 mmol/L (135-145); Total Bilirubin 0.4 mg/dL (0.3-1.2); Total Protein 6.9 g/dL (6.2-8.2)
--- NOTE | 2023-07-14 13:25 | US ---
EXAMINATION TYPE: US abdomen complete DATE OF EXAM: 07/13/2023 COMPARISON: 12/31/2022 CLINICAL INDICATION: Female, 68 years old with history of B18.1 CHRONIC VIRAL HEPATITIS B WITHOUT DEL TA-AGEN; Patient denies any changes from prior exam TECHNIQUE: Multiple sonographic images of the abdomen are obtained. FINDINGS: EXAM MEASUREMENTS: Liver Length: 11.9 cm Gallbladder Wall: 0.2 cm CBD: 0.3 cm Spleen: 10.7 cm Right Kidney: 11.4 x 4.8 x 5.2 cm Left Kidney: 11.1 x 6.1 x 5.2 cm DOCUMENT CONTROL SUPERVISOR NOTES: Pancreas: wnl Liver: wnl Gallbladder: wnl Evidence for sonographic Sotelo's sign: No CBD: wnl Spleen: wnl Right Kidney: wnl Left Kidney: wnl Upper IVC: wnl Abd Aorta: wnl IMPRESSION: 1. No suspicious abnormality by ultrasound of the abdomen.
[2023-07-14 14:49] LABS: Hepatitis B Virus DNA Not detected (Not detected); Hepatitis B Virus DNA, Quant <10 IU/mL (<10); Log HBV IU/mL <1.00 (<1.00)
== END | disposition home or self-care (01) ==
LOC: RADUSWWP 06:47
PROVIDERS: ATTEND Internal Medicine Gastroenterology
DX: B18.1 Chronic viral hepatitis B without delta-agent (principal)
CPT/HCPCS: 76700; 80053; 82105; 85025; 87517

== ENCOUNTER → 2023-11-29 | Outpatient (CLI) | payer MEDICARE, OTHER ==
[2023-11-29 10:10] LABS: Basophils # (A) 0.08 X 10*3/uL (0.00-0.10); Basophils % (A) 1.1 %; Eosinophils # (A) 0.33 X 10*3/uL (0.04-0.35); Eosinophils % (A) 4.6 %; HCT 44.8 % (37.2-46.3); HGB 14.2 g/dL (12.0-15.0); Lymphocytes # (A) 1.91 X 10*3/uL (0.90-5.00); Lymphocytes % (A) 26.5 %; MCH 27.7 pg (27.0-32.0); MCHC 31.7 g/dL (32.0-37.0); MCV 87.5 FL (80.0-97.0); Mean Platelet Volume 9.7 FL (9.5-12.2); Monocytes # (A) 0.53 X 10*3/uL (0.20-1.00); Monocytes % (A) 7.4 %; NRBC Per 100 WBC 0 X 10*3/uL (0.00-0.01); Neutrophils # (A) 4.34 X 10*3/uL (1.80-7.70); Neutrophils % (A) 60.1 %; Platelet Count 283 X 10*3/uL (140-440); RBC 5.12 X 10*6/uL (4.10-5.20); RDW 12.6 % (11.5-14.5); WBC 7.21 X 10*3/uL (4.50-10.00)
[2023-11-29 10:41] LABS: ALT 22 U/L (8-44); AST 24 U/L (13-35); Albumin 4.3 g/dL (3.8-4.9); Albumin/Globulin Ratio 1.87 Ratio (1.60-3.17); Alkaline Phosphatase 90 U/L (41-126); Blood Urea Nitrogen 11.2 mg/dL (9.0-27.0); Calcium 10.2 mg/dL (8.7-10.3); Carbon Dioxide 29.2 mmol/L (21.6-31.8); Chloride 104 mmol/L (96-109); Chol/HDL Ratio 2.64 Ratio; Globulin 2.3 g/dL (1.6-3.3); Glucose 101 mg/dL (70-110); LDL Cholesterol,Calculated 58.9 mg/dL (0.0-131.0); Potassium 4.5 mmol/L (3.5-5.5); Sodium 141 mmol/L (135-145); Total Bilirubin 0.5 mg/dL (0.3-1.2); Total Protein 6.6 g/dL (6.2-8.2)
== END | disposition home or self-care (01) ==
LOC: LABWHC1 06:52
PROVIDERS: ATTEND Internal Medicine
CPT/HCPCS: 36415; 80053; 80061; 82306; 84443; 85025

== ENCOUNTER → 2023-12-20 | Outpatient (CLI) | payer MEDICARE, OTHER ==
--- NOTE | 2023-12-20 14:32 | US ---
EXAMINATION TYPE: US abdomen complete DATE OF EXAM: 12/20/2023 COMPARISON: NONE CLINICAL INDICATION: Female, 68 years old with history of B18.9 CHRONIC VIRAL HEPATITIS, UNSPECIFIED; US every 6 months for 11 years, no symptoms, patient states she is on the very low end of being a he patitis carrier TECHNIQUE: Grayscale and color Doppler imaging of the abdomen was performed. FINDINGS: EXAM MEASUREMENTS: Liver Length: 14.8 cm Gallbladder Wall: 0.2 cm CBD: 0.4 cm Spleen: 11.1 cm Right Kidney: 10.1 x 4.4 x 4.7 cm Left Kidney: 9.7 x 4.2 x 5.6 cm Pancreas: wnl Liver: wnl Gallbladder: wnl Evidence for sonographic Sotelo's sign: no CBD: wnl Spleen: wnl Right Kidney: wnl Left Kidney: wnl Upper IVC: wnl Abd Aorta: wnl The liver is homogenous. The intrahepatic portion of the IVC and proximal abdominal aorta are within normal limits. There is no evidence of cholelithiasis. Common bile duct is unremarkable. The visu alized portions of the pancreas are homogenous. The spleen is unremarkable. Kidneys are symmetric a nd free of hydronephrosis. No renal lesions are seen. IMPRESSION: No discrete abnormality appreciated at this time. [facility], , 12/20/2023 2:29 PM
== END | disposition home or self-care (01) ==
LOC: RADUSWWP 07:45
PROVIDERS: ATTEND Internal Medicine Gastroenterology
DX: B18.9 Chronic viral hepatitis, unspecified (principal)
CPT/HCPCS: 76700

== ENCOUNTER → 2023-12-27 | Outpatient (CLI) | payer MEDICARE, OTHER ==
[2023-12-27 10:43] LABS: ALT 23 U/L (8-44); AST 25 U/L (13-35); Albumin 4.4 g/dL (3.8-4.9); Albumin/Globulin Ratio 1.76 Ratio (1.60-3.17); Alkaline Phosphatase 92 U/L (41-126); Bilirubin, Conjugated <0.20 mg/dL (0.20-0.40); Bilirubin,Unconjugated >0.20 mg/dL (0.20-1.00); Globulin 2.5 g/dL (1.6-3.3); Total Bilirubin 0.4 mg/dL (0.3-1.2); Total Protein 6.9 g/dL (6.2-8.2)
[2023-12-28 12:05] LABS: Hepatitis B Virus DNA Not detected (Not detected); Hepatitis B Virus DNA, Quant <10 IU/mL (<10); Log HBV IU/mL <1.00 (<1.00)
== END | disposition home or self-care (01) ==
LOC: LABWHC1 06:54
PROVIDERS: ATTEND Internal Medicine Gastroenterology
DX: B18.1 Chronic viral hepatitis B without delta-agent (principal)
CPT/HCPCS: 36415; 80076; 82105; 87517

== ENCOUNTER → 2024-01-17 | Outpatient (CLI) | payer MEDICARE, OTHER ==
--- NOTE | 2024-01-17 14:56 | MM ---
Reason for Exam: Screening (asymptomatic). Last mammogram was performed 1 year(s) and 1 month(s) ago. Patient History: Menarche at age 14. Patient has no children. Left ovary removed at age 49. Right ovary removed at age 49. Hysterectomy at age 49. Postmenopausal. Estrogen for 2 years from age 49 until age 51. Hormonal Contraceptives for 5 years from age 23 until age 28. 1987, Bilateral Reduction. Maternal aunt had breast cancer, age 70. Risk Values: Gauri 5 year model risk: 1.9%. NCI Lifetime model risk: 6.7%. Prior Study Comparison: 01/08/2021 Bilateral Screening Mammogram, [facility]. 01/09/2022 Bilateral MG 3D screening mammo w/cad, [facility]. 01/13/2023 Bilateral MG 3D screening mammo w/cad, [facility]. Tissue Density: There are scattered areas of fibroglandular density. Findings: Analyzed By CAD. There is no suspicious group of microcalcifications or new suspicious mass in either breast. Overall Assessment: Negative, BI-RAD 1 Management: Screening Mammogram of both breasts in 1 year. Patient should continue monthly self-breast exams. A clinical breast exam by your physician is recommended on an annual basis. This exam should not preclude additional follow-up of suspicious palpable abnormalities. Note on Gauri scores and lifetime risk: 1. A Gauri score greater than 3% is considered moderate risk. If this is the case, consider specialist referral to assess eligibility for a risk reducing agent. 2. If overall lifetime risk for the development of breast cancer is 20% or higher, the patient may qualify for future screening with alternating mammogram and breast MRI. [facility], , 01/17/2024 2:53 PM. Electronically signed and approved by: Humberto Dunn M.D. Radiologist
== END | disposition home or self-care (01) ==
LOC: RADMAMWWP 09:15
PROVIDERS: ATTEND Internal Medicine
DX: Z12.31 Encounter for screening mammogram for malignant neoplasm of breast (principal); Z78.0 Asymptomatic menopausal state; Z90.722 Acquired absence of ovaries, bilateral; Z80.3 Family history of malignant neoplasm of breast; R92.323 Mammographic fibroglandular density, bilateral breasts
CPT/HCPCS: 77063; 77067

== ENCOUNTER → 2024-02-07 | Outpatient (CLI) | payer MEDICARE, OTHER ==
[2024-02-07 11:36] LABS: ALT 32 U/L (8-44); AST 32 U/L (13-35); Albumin 4.2 g/dL (3.8-4.9); Albumin/Globulin Ratio 1.75 Ratio (1.60-3.17); Alkaline Phosphatase 89 U/L (41-126); Bilirubin, Conjugated <0.20 mg/dL (0.20-0.40); Bilirubin,Unconjugated >0.10 mg/dL (0.20-1.00); Globulin 2.4 g/dL (1.6-3.3); Total Bilirubin 0.3 mg/dL (0.3-1.2); Total Protein 6.6 g/dL (6.2-8.2)
[2024-02-08 10:52] LABS: Hepatitis B Virus DNA Not detected (Not detected); Hepatitis B Virus DNA, Quant <10 IU/mL (<10); Log HBV IU/mL <1.00 (<1.00)
== END | disposition home or self-care (01) ==
LOC: LABWHC1 07:06
PROVIDERS: ATTEND Internal Medicine
DX: R94.6 Abnormal results of thyroid function studies (principal)
CPT/HCPCS: 36415; 80076; 84443; 87517

== ENCOUNTER → 2024-04-13 | Outpatient (CLI) | payer MEDICARE, OTHER ==
[2024-04-13 15:26] LABS: ALT 29 U/L (8-44); AST 33 U/L (13-35); Chol/HDL Ratio 2.49 Ratio; LDL Cholesterol,Calculated 57.3 mg/dL (0.0-131.0); VLDL Calculation 15.74 mg/dL (5.00-40.00)
== END | disposition home or self-care (01) ==
LOC: LABWHC1 07:19
PROVIDERS: ATTEND Internal Medicine Interventional Cardiology
DX: E78.2 Mixed hyperlipidemia (principal)
CPT/HCPCS: 36415; 80061; 84450; 84460

== ENCOUNTER → 2024-06-27 | Outpatient (CLI) | payer MEDICARE, OTHER ==
[2024-06-27 10:50] LABS: Albumin 4.5 g/dL (3.8-4.9); Albumin/Globulin Ratio 1.73 Ratio (1.60-3.17); Bilirubin, Conjugated 0.26 mg/dL (0.20-0.40); Bilirubin,Unconjugated 0.34 mg/dL (0.20-1.00); Globulin 2.6 g/dL (1.6-3.3); Total Bilirubin 0.6 mg/dL (0.3-1.2); Total Protein 7.1 g/dL (6.2-8.2)
[2024-06-28 13:44] LABS: Hepatitis B Virus DNA Not detected (Not detected); Hepatitis B Virus DNA, Quant <10 IU/mL (<10); Log HBV IU/mL <1.00 (<1.00)
== END | disposition home or self-care (01) ==
LOC: LABWHC1 07:27
PROVIDERS: ATTEND Internal Medicine Gastroenterology
DX: B18.1 Chronic viral hepatitis B without delta-agent (principal)
CPT/HCPCS: 36415; 80076; 82105; 87517

== ENCOUNTER → 2024-08-17 | Outpatient (CLI) | payer MEDICARE, OTHER ==
[2024-08-17 08:41] LABS: African American GFR (CKD) >90 (>60 ml/min/1.73 sqM); Blood Urea Nitrogen 14 mg/dL (7-17); Non-African American GFR(CKD) >90 (>60 ml/min/1.73 sqM)
--- NOTE | 2024-08-17 10:40 | CT ---
EXAMINATION TYPE: CT abdomen pelvis wo/w con DATE OF EXAM: 08/17/2024 10:21 AM COMPARISON: None. CLINICAL INDICATION: Female, 69 years old with history of R10.11 RUQ pain, RUQ PAIN TECHNIQUE:CT scan of the abdomen and pelvis is performed with Oral Contrast and with IV Contrast, pat ient injected with 100 mL of Isovue 300. CT DLP: 1575.6 mGycm, Automated exposure control for dose reduction was used. FINDINGS: LUNG BASES-: No visible nodule. No infiltrate. LIVER/GB: No calcified gallstones. No space occupying hepatic lesion. Biliary tree is of normal ca liber. PANCREAS: No inflammation. No distinct mass. SPLEEN: No splenic enlargement. No lesion seen. ADRENALS: No nodule. No thickening. KIDNEYS/BLADDER: No hydronephrosis. No nephrolithiasis. No distinct renal mass. Urinary bladder g rossly unremarkable. BOWEL: Normal appendix. Normal bowel caliber. No inflammation. GENITAL ORGANS: No gross abnormality. LYMPH NODES: No greater than 1cm abdominal or pelvic lymph nodes are appreciated. AORTA: No significant abnormality. OSSEOUS STRUCTURES: No significant abnormality is seen. OTHER: No significant additional abnormality is seen. IMPRESSION: 1. No acute process seen [facility], , 08/17/2024 10:38 AM
== END | disposition home or self-care (01) ==
LOC: RADCTMAIN 08:00
PROVIDERS: ATTEND Internal Medicine
DX: R10.11 Right upper quadrant pain (principal)
CPT/HCPCS: 82565; 84520; 74178; 36415; Q9967